=== PATIENT | female | born 1985 | race African-American/Black ===

== ENCOUNTER 2017-01-07 17:07 | Emergency (ER) | payer BC, OTHER ==
[2017-01-07 17:19] VITALS: BP 130/83; PULSE 70; TEMP 99.1; BMI 44.9
--- NOTE | 2017-01-07 18:21 | PDOC ---
History of Present Illness - General Chief Complaint: Edema Stated Complaint: SWOLLEN LEGS Time Seen by Provider: 01/07/17 18:20 History Source: Patient Exam Limitations: No Limitations - History of Present Illness Initial Comments: 01/07/17 18:21 CHIEF COMPLAINT: Leg swelling HISTORY OF PRESENT ILLNESS: This is a 31 year old female with a history of DVT/ PE in 2015 (no longer on AC), anemia requiring transfusions, morbid obesity, peripheral neuropathy, and chronic bilateral lower extremity lymphedema who presents with several weeks of worsening lower extremity edema and foot pain. She has run out of her morphine and has been taking more than her prescribed dose of gabapentin. V/s on arrival are all within normal limits. PCP is Dr. Sethi Patient has also seen Dr. Khan with vascular surgery REVIEW OF SYSTEMS: GENERAL/CONSTITUTIONAL: Fatigue. No fever or chills. No weakness. No weight change. HEAD, EYES, EARS, NOSE AND THROAT: No change in vision. No ear pain or discharge. No sore throat. CARDIOVASCULAR: No chest pain or palpitations. RESPIRATORY: Dyspnea on exertion. No cough or wheezing. GASTROINTESTINAL: Diarrhea x 3 days. GENITOURINARY: No dysuria, frequency, or change in urination. MUSCULOSKELETAL: No joint or muscle swelling or pain. No neck or back pain. SKIN: No rash or easy bruising. NEUROLOGIC: No headache, vertigo, loss of consciousness, or loss of sensation. PSYCHIATRIC: No depression or anxiety. ENDOCRINE: No increased thirst. No abnormal weight change. HEMATOLOGIC/LYMPHATIC: No anemia, easy bleeding, or history of blood clots. ALLERGIC/IMMUNOLOGIC: No hives or skin allergy. No latex allergy. PHYSICAL EXAM: GENERAL: The patient is awake, alert, and fully oriented, in no acute distress. HEAD: Normal with no signs of trauma. ENT: Pupils equal, round and reactive to light, extraocular movements intact, sclera anicteric, conjunctiva clear. Neck supple. LUNGS: Clear to auscultation bilaterally. Normal excursion. No respiratory distress or use of accessory muscles. CV: RRR, S1/S2, no MRG. Cap refill < 2 sec. ABDOMEN: Soft, obese, non-tender. No guarding or rebound tenderness. EXTREMITIES: Marked edema both lower extremities. Left posterior thigh tenderness/swelling. DP/PT pulses 1+ bilaterally. No skin breakdown. NEUROLOGICAL: Normal speech, normal gait. CN II-XII grossly intact. PSYCH: Normal mood, normal affect. SKIN: Warm, dry, normal turgor. Past History - Past Medical History Allergies/Adverse Reactions: Allergies Allergy/AdvReac Type Severity Reaction Status Date / Time No Known Allergies Allergy Verified 01/07/17 17:19 Home Medications: Ambulatory Orders Morphine (Avinza) [Avinza] 30 mg PO BID 03/09/16 Aspirin [ASA -] 325 mg PO DAILY 05/02/16 Folic Acid 1 tab PO DAILY 07/09/16 Gabapentin [Neurontin] 800 mg PO TID 07/09/16 Anemia: Yes (since childhood) Asthma: No Cancer: No Cardiac Disorders: No CVA: No COPD: No CHF: No Dementia: No Diabetes: No GI Disorders: No Disorders: No HTN: No Hypercholesterolemia: No Kidney Stones: No Liver Disease: No Seizures: No Thyroid Disease: No - Surgical History Abdominal Surgery: Yes (periumbilical hernia repair 01/09) - Immunization History Immunization Up to Date: Yes - Psycho/Social/Smoking Cessation Hx Anxiety: No Suicidal Ideation: No Smoking Status: No Smoking History: Never smoked Have you smoked in the past 12 months: No Number of Cigarettes Smoked Daily: 0 Information on smoking cessation initiated: No Hx Alcohol Use: No Drug/Substance Use Hx: No Substance Use Type: None Hx Substance Use Treatment: No *Physical Exam - Vital Signs Last Vital Signs Temp Pulse Resp BP Pulse Ox 99.1 F 70 18 130/83 100 01/07/17 17:15 01/07/17 17:15 01/07/17 17:15 01/07/17 17:15 01/07/17 17:15 ED Treatment Course - LABORATORY CBC & Chemistry Diagram: 01/07/17 18:31 01/07/17 18:31 Medical Decision Making - Medical Decision Making 01/07/17 18:55 A/P: 31 year old female with worsening of chronic lymphedema. Also complaining of fatigue which may be secondary to taking more than recommended amount of gabapentin. Complaining of some PIERSON, however SpO2 100% on RA, no tachycardia, tachypnea, or chest pain - low suspicion for PE. 1. EKG 2. Labs including CBC, CMP, BNP, UA 3. CXR to rule out pulmonary vascular congestion 4. Duplex LE u/s to r/o DVT 5. Morphine 4mg IVP x 1 for pain 6. Discuss[address] Dr. Sethi - requests ABG (patient refuses), and office followup for medication regimen adjustment. He will try to place the patient in the [facility]. Patient has followup appointment tomorrow and may be discharged if no concerning lab or radiology findings. Patient signed out to JAYE Flores to follow up on results, disposition.
[2017-01-07] MEDS ORDERED: morphine CARPU-JECT 4 MG/1 ML DISP.SYRIN IVPUSH ONE (18:41)
[2017-01-07] MEDS ORDERED: morphine CARPU-JECT 4 MG/1 ML DISP.SYRIN ONE (18:45)
[2017-01-07 18:57] LABS: BASOPHIL 0.4 % (0-2.0); EOSINOPHIL 0.8 % (0-4.5); MCH 27.5 pg (25.7-33.7); MEAN CELL VOLUME 83.5 fl (80-96); NEUTROPHILS 71.2 % (42.8-82.8); PLATELET COUNT 64 K/MM3 (134-434); WHITE BLOOD COUNT 3.5 K/mm3 (4.0-10.0)
[2017-01-07 19:16] LABS: ANION GAP 6 (8-16); BILIRUBIN,TOTAL 0.7 mg/dL (0.2-1.0); CALCIUM 8.8 mg/dL (8.5-10.1); CO2 28 mmol/L (21-32); CREATININE 0.6 mg/dL (0.55-1.02); GLUCOSE,RANDOM 87 mg/dL (74-106); SGOT/AST 43 U/L (15-37); SGPT/ALT 43 U/L (12-78); TOT PROT 7.7 g/dl (6.4-8.2)
[2017-01-07 19:18] LABS: ALK PHOS 86 U/L (45-117)
--- NOTE | 2017-01-07 21:11 | PDOC ---
*Physical Exam - Vital Signs Last Vital Signs Temp Pulse Resp BP Pulse Ox 99.1 F 70 18 130/83 100 01/07/17 17:15 01/07/17 17:15 01/07/17 17:15 01/07/17 17:15 01/07/17 17:15 ED Treatment Course - LABORATORY CBC & Chemistry Diagram: 01/07/17 18:31 01/07/17 18:31 - ADDITIONAL ORDERS Additional order review: Laboratory Results 01/07/17 01/07/17 18:41 18:31 Sodium 139 Potassium 4.4 Chloride 105 Carbon Dioxide 28 Anion Gap 6 L BUN 12 D Creatinine 0.6 Creat Clearance w eGFR > 60 Random Glucose 87 Calcium 8.8 Total Bilirubin 0.7 D AST 43 H D ALT 43 D Alkaline Phosphatase 86 B-Natriuretic Peptide 581.06 H Total Protein 7.7 Albumin 4.0 D Alcohol, Quantitative < 5.0 01/07/17 18:31 RBC 3.64 MCV 83.5 MCHC 33.0 RDW 16.0 H D MPV 11.0 D Neutrophils % 71.2 Lymphocytes % 22.0 D Monocytes % 5.6 Eosinophils % 0.8 Basophils % 0.4 - Medications Given in the ED: ED Medications Discontinued Medications Generic Name Dose Route Start Last Admin Trade Name Capoq PRN Reason Stop Dose Admin Morphine Sulfate 4 mg 01/07/17 18:41 01/07/17 18:46 Morphine Injection - IVPUSH 01/07/17 18:42 4 mg ONCE ONE Administration Medical Decision Making - Medical Decision Making 01/07/17 21:[address] daly. reviewed results. patient to be evaluated outpatient. U/s negative for DVT. chest negative. official read pending. *DC/Admit/Observation/Transfer Diagnosis at time of Disposition: Generalized weakness, Lymphedema of both lower extremities - Discharge Dispostion Disposition: HOME - Referrals Referrals: Michael Daly MD [Primary Care Provider] - Call tomorrow - Patient Instructions Printed Discharge Instructions: DI for Lymphadenopathy Additional Instructions: follow up with Dr. Page tomorrow. return to the ER if symptoms worsen.
--- NOTE | 2017-01-08 11:34 | EKG ---
Test Reason : Blood Pressure : / mmHG Vent. Rate : 070 BPM Atrial Rate : 070 BPM P-R Int : 208 ms QRS Dur : 090 ms QT Int : 404 ms P-R-T Axes : 031 -18 060 degrees QTc Int : 436 ms SINUS RHYTHM WITH FIRST AV BLOCK POOR R WAVE PROGRESSION IN V1-V3 NONSPECIFIC T WVAE ABNORMALITIES ABNORMAL ECG WHEN COMPARED WITH ECG OF 02-MAY-2016 11:35, NO MAJOR CHANGE SEEN REPEAT EKG IF CLINICALLY INDICATED Confirmed by ANGELA TRAYLOR MD ([id number]) on 01/08/2017 11:34:29 AM Referred By: Confirmed By:ANGELA TRAYLOR MD
== END 2017-01-07 22:00 | disposition home or self-care (01) ==
LOC: JER 17:07
PROC: 3E033NZ Introduction of Analgesics, Hypnotics, Sedatives into Peripheral Vein, Percutaneous Approach (ICD-10-PCS; principal; 2017-01-07)
DX: R53.83 Other fatigue (principal); R53.1 Weakness; I89.0 Lymphedema, not elsewhere classified; D64.9 Anemia, unspecified; E66.01 Morbid (severe) obesity due to excess calories; Z68.41 Body mass index [BMI] 40.0-44.9, adult; Z86.718 Personal history of other venous thrombosis and embolism; Z86.711 Personal history of pulmonary embolism
CPT/HCPCS: 36415; 71020-TC; 80053; 80307; 83880; 85025; 93005; 93010; 93970-TC; 96374; 99284-25

== ENCOUNTER 2017-02-10 11:23 | Emergency (ER) | payer OTHER ==
[2017-02-10 11:55] VITALS: BP 148/88; PULSE 78; TEMP 98.6; BMI 46.1
--- NOTE | 2017-02-10 13:00 | PDOC ---
History of Present Illness - General Chief Complaint: Edema Stated Complaint: SWOLLEN LEGS Time Seen by Provider: 02/10/17 12:15 - History of Present Illness Initial Comments: 02/10/17 13:20 The patient is a 31 year old female with a history of DVT, PE, peripheral neuropathy, lymphedema who presents for evaluation of worsening lower extremity swelling and foot pain. The patient reports a long history of lymphedema and neuropathy for over 1 year. She states that over the past week, she has noted worsening burning sensation at the bottom of her feet and right heel pain. She notes that she was taking diclofenac for her heel pain which was helping, however, she recently became unemployed and has not been able to afford it. She notes that she has been taking gabapentin as well for her neuropathy, but the dose has been decreased over the past several months. She denies SOB, chest pain, abdominal pain, or changes with urination or bowel movements. Past History - Past Medical History Allergies/Adverse Reactions: Allergies Allergy/AdvReac Type Severity Reaction Status Date / Time No Known Allergies Allergy Verified 02/10/17 11:55 Home Medications: Ambulatory Orders Folic Acid 1 tab PO DAILY 07/09/16 Gabapentin [Neurontin] 800 mg PO TID 07/09/16 Diclofenac Sodium 75 mg PO DAILY #30 tablet. 02/10/17 Anemia: Yes (since childhood) Asthma: No Cancer: No Cardiac Disorders: No CVA: No COPD: No CHF: No Dementia: No Diabetes: No GI Disorders: No Disorders: No HTN: No (lymphaedema) Hypercholesterolemia: No Kidney Stones: No Liver Disease: No Seizures: No Thyroid Disease: No Other medical history: neuropathy - Surgical History Abdominal Surgery: Yes (periumbilical hernia repair 01/09) - Immunization History Immunization Up to Date: Yes - Suicide/Smoking/Psychosocial Hx Smoking Status: No Smoking History: Never smoked Have you smoked in the past 12 months: No Number of Cigarettes Smoked Daily: 0 Information on smoking cessation initiated: No Hx Alcohol Use: No Drug/Substance Use Hx: No Substance Use Type: None Hx Substance Use Treatment: No Review of Systems - Review of Systems Comments:: 02/10/17 13:26 Constitutional: No fevers, chills, fatigue, malaise HEENT: No Rhinorrhea, nasal congestion, Cardiovascular: No chest pain, syncope, palpitations, lightheadedness Respiratory: No Cough, SOB, Hemoptysis, Gastrointestinal: No Abdominal pain, Nausea, Vomiting, Constipation, Diarrhea, Melena Genitourinary: No Dysuria, Frequency, Urgency, Hesitancy, Hematuria, Flank pain Musculoskeletal: Right heel pain. Lower extremity swelling. No Myalgia, arthralgia Skin: No rashes, bruising, pallor Neurologic: No Headache, Dizziness, Numbness, Weakness, or Tingling *Physical Exam - Vital Signs Last Vital Signs Temp Pulse Resp BP Pulse Ox 98.6 F 78 18 148/88 100 02/10/17 11:25 02/10/17 11:25 02/10/17 11:25 02/10/17 11:25 02/10/17 11:25 - Physical Exam Comments: 02/10/17 13:27 General Appearance: Nourished. No Apparent Distress HEENT: EOMI, BOUCHRA. No Pharyngeal Erythema, Tonsillar Exudate, Tonsillar Erythema Respiratory/Chest: Lungs Clear, Normal Breath Sounds. No Crackles, Rales, Rhonchi, Wheezing Cardiovascular: Regular Rhythm, Regular Rate. No Murmur, Gallops, Rubs Gastrointestinal/Abdominal: Normal Bowel Sounds, Soft. No Guarding, Rebound, Tenderness Musculoskeletal: No CVA Tenderness Extremity: Significant 3+ pitting edema in the lower extremities bilaterally. Tenderness to palpation of the right heel. Normal Capillary Refill Integumentary: Normal Color, Dry, Warm Neurologic: Fully Oriented, Alert, Normal Mood/Affect, Normal Response, Medical Decision Making - Medical Decision Making 02/10/17 13:28 The patient is a 31 year old female with a history of DVT, PE, peripheral neuropathy, lymphedema who presents for evaluation of worsening lower extremity swelling and foot pain. Differential includes but is not limited to: DVT, Worsening Lymphedema, fracture, tendonitis. Given the patient's history of DVT and significant lower extremity edema, we will obtain US to evaluate for DVT. We will also obtain a plain film of her right heel given her pain with palpation to evaluate for fracture. We will treat her pain with diclofenac and gabapentin here in the ED and continue to monitor and reassess. 02/10/17 17:07 DVT US was negative for DVT as read by our radiologist. Foot plain film demonstrates an osteophyte but no acute fracture or processes as preliminarily read by ED physician pending official radiologist read. We are comfortable discharging the patient home at this time with PCP and podietry follow up. We will send Diclofinec to the [facility] pharmacy to assist in pain management at home. *DC/Admit/Observation/Transfer Diagnosis at time of Disposition: Lymphedema - Discharge Dispostion Disposition: HOME Condition at time of disposition: Improved Admit: No - Prescriptions Prescriptions: Diclofenac Sodium 75 mg PO DAILY #30 tablet.dr - Referrals Referrals: Michael Sethi MD [Primary Care Provider] - Digna Gongora MD [Staff Physician] - - Patient Instructions Additional Instructions: Please return to the ER if you experience concerning or worsening symptoms including chest pain or SOB. We have given you a [facility] Please follow up with a podietrist and your Primary care provider for further management of your symptoms.
[2017-02-10] MEDS ORDERED: GABAPENTIN 300 MG CAPSULE (FP) PO ONE (13:01)
[2017-02-10] MEDS: DICLOFENAC SODIUM 25 MG TABLET.DR PO ONE ×2 (13:13→13:25)
[2017-02-10] MEDS ORDERED: GABAPENTIN 100 MG CAPSULE (FP) ONE (13:15)
--- NOTE | 2017-02-10 14:26 | PDOC ---
Attending Attestation - Resident Resident Name: BeckyBrian - ED Attending Attestation I have performed the following: I have examined & evaluated the patient, The case was reviewed & discussed with the resident, I agree w/resident's findings & plan, Exceptions are as noted - HPI HPI: 02/10/17 13:50 31 year old F c/ hx of DVT, PE, peripheral neuropathy, lymphedema p/w R heel pain. The patient has had a longstanding history of bilateral lymphedema. The patient has noted in the last week of having worsening R heel pain. Denies trauma, but has been ambulatory. Pt has been taking her gabapentin but because of the worsening pain, came into the ED. - Physicial Exam PE: 02/10/17 13:53 LOWER EXTREMITIES: Palpable DP pulses. + lymphedema bilaterally. No erythema, drainage. Crow sign negative. Pt with point tenderness at the R heel - Medical Decision Making 02/10/17 14:26 Vital Signs Temp Pulse Resp BP Pulse Ox 98.6 F 78 18 148/88 99 02/10/17 11:25 02/10/17 11:25 02/10/17 11:25 02/10/17 11:25 02/10/17 13:53 31 year old F p/w R heel pain. I suspect that this is likely musculoskeletal. Pt reported that she responded well to diclofenac in the past Will obtain a foot radiograph and duplex of lower extremities. If workup is negative, pt instructed to elevate legs, ICE, NSAIDs and follow up with PMD Heart Score/ECG Review #1 ECG reviewed & interpreted by me at: 11:40 02/10/17 14:27 NSR 76, no std/rocio, normal axis ,normal intervals, QTC 429 msec
--- NOTE | 2017-02-12 07:16 | EKG ---
Test Reason : Blood Pressure : / mmHG Vent. Rate : 076 BPM Atrial Rate : 076 BPM P-R Int : 178 ms QRS Dur : 096 ms QT Int : 382 ms P-R-T Axes : 005 -15 037 degrees QTc Int : 429 ms NORMAL SINUS RHYTHM NORMAL ECG WHEN COMPARED WITH ECG OF 07-JAN-2017 19:53, NO SIGNIFICANT CHANGE WAS FOUND Confirmed by SABINE MCCOLLUM MD ([id number]) on 02/12/2017 7:16:36 AM Referred By: Confirmed By:SABINE MCCOLLUM MD
== END 2017-02-10 18:03 | disposition home or self-care (01) ==
LOC: JER 11:23
DX: I89.0 Lymphedema, not elsewhere classified (principal); G62.9 Polyneuropathy, unspecified; Z86.718 Personal history of other venous thrombosis and embolism; Z86.711 Personal history of pulmonary embolism
CPT/HCPCS: 73630-TC-RT; 84703; 93005; 93010; 93970-TC; 99282-25

== ENCOUNTER 2017-03-31 21:03 | Emergency (ER) | payer OTHER ==
[2017-03-31 21:17] VITALS: BP 141/80; PULSE 70; TEMP 98.9; BMI 48.1
--- NOTE | 2017-03-31 21:24 | PDOC ---
History of Present Illness - History of Present Illness Initial Comments: 03/31/17 21:37 Ms. Hartley is a 31 yo female w/ pmh of DVT, PE (2015, not currently anticoagulated), peripheral neuropathy, and lymphedema who presents c/o a 1 day history of shortness of breath with palpitations. She says she is normally able to ambulate w/out problems but that she woke up today shortness of breath at rest and on exertion and felt like her heart was beating hard. The patient denies chest pain, headache and dizziness. Denies fever, chills, nausea, vomit, diarrhea and constipation. Denies dysuria, frequency, urgency and hematuria. Allergies: NKDA <Murali Boothe - Last Filed: 03/31/17 21:47> <Faith Scanlon - Last Filed: 04/01/17 01:41> - General Chief Complaint: Shortness of Breath Stated Complaint: SOB Time Seen by Provider: 03/31/17 21:24 Past History - Past Medical History Anemia: Yes (since childhood) Asthma: No Cancer: No Cardiac Disorders: No CVA: No COPD: No CHF: No Dementia: No Diabetes: No GI Disorders: No Disorders: No HTN: No (lymphaedema) Hypercholesterolemia: No Kidney Stones: No Liver Disease: No Seizures: No Thyroid Disease: No - Surgical History Abdominal Surgery: Yes (periumbilical hernia repair 01/09) - Immunization History Immunization Up to Date: Yes - Suicide/Smoking/Psychosocial Hx Smoking Status: No Smoking History: Never smoked Have you smoked in the past 12 months: No Number of Cigarettes Smoked Daily: 0 Information on smoking cessation initiated: No Hx Alcohol Use: No Drug/Substance Use Hx: No Substance Use Type: None Hx Substance Use Treatment: No <Murali Boothe - Last Filed: 03/31/17 21:47> <Faith Scanlon - Last Filed: 04/01/17 01:41> - Past Medical History Allergies/Adverse Reactions: Allergies Allergy/AdvReac Type Severity Reaction Status Date / Time No Known Allergies Allergy Verified 03/31/17 21:15 Home Medications: Ambulatory Orders Folic Acid 1 tab PO DAILY 07/09/16 Gabapentin [Neurontin] 800 mg PO TID 07/09/16 Diclofenac Sodium 75 mg PO DAILY #30 tablet. 02/10/17 Gabapentin [Neurontin] 800 mg PO TID #30 tablet 02/10/17 Lorazepam [Ativan] 0.5 mg PO TID #15 tablet MDD 3 03/31/17 Review of Systems - Review of Systems Comments:: 03/31/17 21:53 GENERAL/CONSTITUTIONAL: No fever or chills. No weakness. HEAD, EYES, EARS, NOSE AND THROAT: No change in vision. No ear pain or discharge. No sore throat. CARDIOVASCULAR: Shortness of breath as described with palpitations RESPIRATORY: No cough, wheezing, or hemoptysis. GASTROINTESTINAL: No nausea, vomiting, diarrhea or constipation. GENITOURINARY: No dysuria, frequency, or change in urination. MUSCULOSKELETAL: No joint or muscle swelling or pain. No neck or back pain. SKIN: No rash NEUROLOGIC: No headache, vertigo, loss of consciousness, or change in strength/ sensation. ENDOCRINE: No increased thirst. No abnormal weight change HEMATOLOGIC/LYMPHATIC: No anemia, easy bleeding, or history of blood clots. ALLERGIC/IMMUNOLOGIC: No hives or skin allergy. <Murali Boothe - Last Filed: 03/31/17 21:47> *Physical Exam - Vital Signs Last Vital Signs Temp Pulse Resp BP Pulse Ox 98.9 F 70 16 141/80 100 03/31/17 21:16 03/31/17 21:16 03/31/17 21:16 03/31/17 21:16 03/31/17 21:16 - Physical Exam Comments: 03/31/17 21:53 GENERAL: Awake, alert, and fully oriented, in no acute distress HEAD: No signs of trauma, normocephalic, atraumatic EYES: PERRLA, EOMI, sclera anicteric, conjunctiva clear ENT: Auricles normal inspection, hearing grossly normal, nares patent, oropharynx clear without exudates. Moist mucosa NECK: Normal ROM, supple, no lymphadenopathy, JVD, or masses LUNGS: No distress, speaks full sentences, clear to auscultation bilaterally HEART: Regular rate and rhythm, normal S1 and S2, no murmurs, rubs or gallops, peripheral pulses normal and equal bilaterally. ABDOMEN: Soft, nontender, normoactive bowel sounds. No guarding, no rebound. No masses EXTREMITIES: Normal inspection, Normal range of motion, no edema. No clubbing or cyanosis. NEUROLOGICAL: Cranial nerves II through XII grossly intact. Normal speech, normal gait, no focal sensorimotor deficits SKIN: Warm, Dry, normal turgor, no rashes or lesions noted. <Murali Boothe - Last Filed: 03/31/17 21:47> - Vital Signs Last Vital Signs Temp Pulse Resp BP Pulse Ox 98.9 F 70 16 141/80 100 03/31/17 21:16 03/31/17 21:16 03/31/17 21:16 03/31/17 21:16 03/31/17 21:16 <Faith Scanlon - Last Filed: 04/01/17 01:41> ED Treatment Course - LABORATORY CBC & Chemistry Diagram: 03/31/17 22:02 03/31/17 22:02 - ADDITIONAL ORDERS Additional order review: Laboratory Results 03/31/17 03/31/17 22:02 22:02 Sodium 138 Potassium 3.7 Chloride 103 Carbon Dioxide 33 H Anion Gap 2 L BUN 12 Creatinine 0.6 Creat Clearance w eGFR > 60 Random Glucose 86 Calcium 8.4 L Total Bilirubin 0.5 D AST 23 D ALT 26 D Alkaline Phosphatase 80 Total Protein 7.6 Albumin 3.6 Serum , Qual Negative 03/31/17 22:02 RBC 4.11 MCV 83.4 MCHC 33.1 RDW 15.5 MPV 9.9 Neutrophils % 62.4 Lymphocytes % 29.5 D Monocytes % 6.7 Eosinophils % 0.7 Basophils % 0.7 - RADIOLOGY Radiology Studies Ordered: Category Date Time Status DUPLEX VASCUL US-2LEGS [US] Stat Ultrasound 04/01/17 23:11 Taken - Medications Given in the ED: ED Medications Discontinued Medications Generic Name Dose Route Start Last Admin Trade Name Freq PRN Reason Stop Dose Admin Lorazepam 1 mg 03/31/17 22:00 03/31/17 22:18 Ativan - PO 03/31/17 22:01 1 mg ONCE ONE Administration <Faith Scanlon - Last Filed: 04/01/17 01:41> *DC/Admit/Observation/Transfer <Murali Boothe - Last Filed: 03/31/17 21:47> - Discharge Dispostion Admit: No <Faith Scanlon - Last Filed: 12/04/17 01:41> Diagnosis at time of Disposition: Obesity, Sedentary lifestyle - Discharge Dispostion Disposition: HOME Condition at time of disposition: Stable - Prescriptions Prescriptions: Lorazepam [Ativan] 0.5 mg PO TID #15 tablet MDD 3 - Patient Instructions Printed Discharge Instructions: DI for Obesity -- Adult, Weight Loss Aids ( Alternative Therapy), Get a Handle on Stress with Physical Fitness
--- NOTE | 2017-03-31 21:42 | PDOC ---
Attending Attestation - Resident Resident Name: Murali Boothe - ED Attending Attestation I have performed the following: I have examined & evaluated the patient, The case was reviewed & discussed with the resident, I agree w/resident's findings & plan - HPI HPI: 03/31/17 21:42 Pt returns with SOB; she had a PE workup in Apr. 03/31/17 23:12 Pt has a hx of DVT in the past, but she has chronic leg swelling and states that her legs dont look any different to her. She has no SOB in the ER, and her vital signs are normal. - Physicial Exam PE: 04/01/17 01:36 Pt is obese, otherwise exam is normal; chronic leg edema - Medical Decision Making 04/01/17 01:36 Referring Physician: STEPHANIE NGUYEN Patient Name: WILBER RONDON THIS IS A PRELIMINARY REPORT FROM [facility] DATE OF SERVICE: 2017-04-01 00:33:35 IMAGES: 40 EXAM: Venous duplex bilateral, lower extremities HISTORY: Rule out DVT COMPARISON: None. FINDINGS: There is no DVT in the right or left lower extremity. IMPRESSION: No DVT. THIS DOCUMENT HAS BEEN ELECTRONICALLY SIGNED 04/01/17 06:32 Pt will be discharged and she will be asked to follow with her PMD., SHe understands the need to follow with stock lifter and to lose weight. She will be given meds for anxiety. She can follow with her PMD or with psych for further treatement.
[2017-03-31] MEDS ORDERED: LORazepam 1 MG TABLET PO ONE (22:00)
[2017-03-31] MEDS ORDERED: LORazepam 0.5 MG TABLET ONE (22:12)
[2017-03-31 22:20] LABS: BASOPHIL 0.7 % (0-2.0); EOSINOPHIL 0.7 % (0-4.5); MCH 27.6 pg (25.7-33.7); MCHC 33.1 g/dl (32.0-36.0); MEAN CELL VOLUME 83.4 fl (80-96); MEAN PLT VOLUME 9.9 fl (7.5-11.1); NEUTROPHILS 62.4 % (42.8-82.8); PLATELET COUNT 84 K/MM3 (134-434); RDW 15.5 % (11.6-15.6)
[2017-03-31 22:46] LABS: ALBUMIN 3.6 g/dl (3.4-5.0); ANION GAP 2 (8-16); BILIRUBIN,TOTAL 0.5 mg/dL (0.2-1.0); CALCIUM 8.4 mg/dL (8.5-10.1); CO2 33 mmol/L (21-32); CREATININE 0.6 mg/dL (0.55-1.02); GLUCOSE,RANDOM 86 mg/dL (74-106); SGOT/AST 23 U/L (15-37); SGPT/ALT 26 U/L (12-78); TOT PROT 7.6 g/dl (6.4-8.2)
[2017-03-31 22:47] LABS: ALK PHOS 80 U/L (45-117)
--- NOTE | 2017-04-01 12:54 | EKG ---
Test Reason : Blood Pressure : / mmHG Vent. Rate : 071 BPM Atrial Rate : 071 BPM P-R Int : 206 ms QRS Dur : 088 ms QT Int : 402 ms P-R-T Axes : 022 -10 026 degrees QTc Int : 436 ms NORMAL SINUS RHYTHM NORMAL ECG WHEN COMPARED WITH ECG OF 10-FEB-2017 11:40, NO SIGNIFICANT CHANGE WAS FOUND Confirmed by SABINE MCCOLLUM MD ([id number]) on 04/01/2017 12:53:26 PM Referred By: Confirmed By:SABINE MCCOLLUM MD
== END 2017-04-01 02:04 | disposition home or self-care (01) ==
LOC: JER 21:03
DX: R00.2 Palpitations (principal); R06.02 Shortness of breath; Z72.89 Other problems related to lifestyle; E66.9 Obesity, unspecified; Z68.42 Body mass index [BMI] 45.0-49.9, adult; I89.0 Lymphedema, not elsewhere classified; G62.9 Polyneuropathy, unspecified
CPT/HCPCS: 36415; 80053; 84703; 85025; 93005; 93010; 93970-TC; 99284-25

== ENCOUNTER 2017-06-27 11:32 | Emergency (ER) | payer OTHER ==
[2017-06-27 11:50] VITALS: BP 145/92; PULSE 77; TEMP 98.1; BMI 48.1
--- NOTE | 2017-06-27 12:12 | PDOC ---
History of Present Illness - General Chief Complaint: Urinary Problem Stated Complaint: BACK PAIN Time Seen by Provider: 06/27/17 12:01 History Source: Patient Exam Limitations: No Limitations - History of Present Illness Initial Comments: 06/27/17 12:10 Patient is a 31-year-old female, morbidly obese history of bilateral lower extremity peripheral neuropathy and lymphedema presents with 2 day history of dysuria and frequency. No hematuria. Lower back pain, radiating down right leg . Patient has history of same. Denies any fever, no new sexual activity. Allergies: No known allergies Medications: [Percocet when necessary, Ambien] Family History: Non-contributory Social History: Denies smoking, alcohol use, or IVDU Vital signs on arrival are [notable for pulse of 77] Review of Systems GENERAL/CONSTITUTIONAL: [No fever or chills. No weakness. No weight change.] HEAD, EYES, EARS, NOSE AND THROAT: [No change in vision. No ear pain or discharge. No sore throat. ] CARDIOVASCULAR: [No chest pain or shortness of breath.] RESPIRATORY: [No cough, wheezing, or hemoptysis.] GASTROINTESTINAL: [No nausea, vomiting, diarrhea or constipation. No rectal bleeding.] GENITOURINARY: Dysuria and frequency no hematuria MUSCULOSKELETAL: [No joint or muscle swelling or pain. No neck or back pain.] SKIN AND BREASTS: [No rash or easy bruising.] NEUROLOGIC: [No headache, vertigo, loss of consciousness, or loss of sensation.] PSYCHIATRIC: [No depression or anxiety.] ENDOCRINE: [No increased thirst. No abnormal weight change.] HEMATOLOGIC/LYMPHATIC: [No anemia, easy bleeding, or history of blood clots.] ALLERGIC/IMMUNOLOGIC: [No hives or skin allergy. No latex allergy.] Physical Exam: GENERAL: [The patient is awake, alert, and fully oriented, in no acute distress. ] EYES: [Pupils equal, round and reactive to light, extraocular movements intact, sclera anicteric, conjunctiva clear.] ENT: [Ears normal, nares patent, oropharynx clear without exudates. Moist mucous membranes. No uvula deviation] NECK: [Normal range of motion, supple without lymphadenopathy, JVD, or masses.] LUNGS: [Breath sounds equal, clear to auscultation bilaterally. No wheezes, and no crackles.] HEART: [Regular rate and rhythm, normal S1 and S2 without murmur, rub or gallop. ] ABDOMEN: [Soft, nontender, normoactive bowel sounds. No guarding, no rebound. No masses. No bruising or abrasions] MUSCULOSKELETAL: [Normal range of motion, no edema. No clubbing or cyanosis. No cords, erythema, or tenderness. No CVA Tenderness with fist palpation.] NEUROLOGICAL: [Cranial nerves II through XII grossly intact. Normal speech, normal gait.] SKIN: [Warm, Dry, normal turgor, no rashes or lesions noted.] 06/27/17 12:11 Past History - Past Medical History Allergies/Adverse Reactions: Allergies Allergy/AdvReac Type Severity Reaction Status Date / Time No Known Allergies Allergy Verified 06/27/17 11:45 Home Medications: Ambulatory Orders Cephalexin Monohydrate [Keflex -] 500 mg PO BID #20 capsule 06/27/17 Anemia: Yes (since childhood) Asthma: No Cancer: No Cardiac Disorders: No CVA: No COPD: No CHF: No Dementia: No Diabetes: No GI Disorders: No Disorders: No HTN: No (lymphaedema) Hypercholesterolemia: No Kidney Stones: No Liver Disease: No Seizures: No Thyroid Disease: No - Surgical History Abdominal Surgery: Yes (periumbilical hernia repair 01/09) - Immunization History Immunization Up to Date: Yes - Suicide/Smoking/Psychosocial Hx Smoking Status: No Smoking History: Current some day smoker Have you smoked in the past 12 months: No Number of Cigarettes Smoked Daily: 2 Information on smoking cessation initiated: No Hx Alcohol Use: No Drug/Substance Use Hx: No Substance Use Type: None Hx Substance Use Treatment: No *Physical Exam - Vital Signs Last Vital Signs Temp Pulse Resp BP Pulse Ox 98.1 F 77 20 145/92 99 06/27/17 11:35 06/27/17 11:35 06/27/17 11:35 06/27/17 11:35 06/27/17 11:35 Medical Decision Making - Medical Decision Making 06/27/17 12:11 A/P: Patient with dysuria and frequency lower back pain radiated down right leg however back pain is chronic. Will send urinalysis and urine culture 06/27/17 13:34 Laboratory Results - last 24 hr 06/27/17 12:10 Urine Color Dkyellow Urine Appearance Slcloudy Urine pH 5.0 Ur Specific [place] 1.033 Urine Protein 2+ H Urine Glucose (UA) Negative Urine Ketones Negative Urine Blood 1+ H Urine Nitrite Negative Urine Bilirubin 2.0 Urine Urobilinogen 2.0 H Ur Leukocyte Esterase 3+ H Urine WBC (Auto) 80 Urine RBC (Auto) 6 Ur Epithelial Cells Few Urine Bacteria Rare Urine Mucus Rare Urine HCG, Qual Negative Patient with urinary tract infection will DC on Keflex, follow-up with urology. Domenic for pain.I discussed the physical exam findings, ancillary test results and final diagnoses with the patient. I answered all of the patient's questions. The patient was satisfied with the care received and felt comfortable with the discharge plan and treatment plan. The patient will call to arrange follow-up and will return to the Emergency Department with any new, persistent or worsening symptoms. *DC/Admit/Observation/Transfer Diagnosis at time of Disposition: Urinary tract infection Qualifiers: Urinary tract infection type: site unspecified Hematuria presence: without hematuria Qualified Code(s): N39.0 - Urinary tract infection, site not specified - Discharge Dispostion Disposition: HOME Condition at time of disposition: Stable Admit: No - Prescriptions Prescriptions: Cephalexin Monohydrate [Keflex -] 500 mg PO BID #20 capsule - Referrals Referrals: Mukund Cazares MD [Staff Physician] - - Patient Instructions Additional Instructions: If any increased pain, fever, blood in urine, or any other concerns return to ER - Post Discharge Activity Forms/Work/School Notes: Back to Work
[2017-06-27 12:21] LABS: URINE APPEARANCE SLCLOUDY; URINE BLOOD 1+ (NEGATIVE); URINE COLOR DKYELLOW; URINE GLUCOSE (UA) NEGATIVE (NEGATIVE); URINE KETONE NEGATIVE (NEGATIVE); URINE NITRITE NEGATIVE (NEGATIVE)
[2017-06-27 12:23] LABS: URINE LEUK ESTERASE 3+ (NEGATIVE); URINE PROTEIN 2+ (NEGATIVE)
[2017-06-27 12:25] LABS: EPI CELLS FEW /HPF (FEW); URINE BACTERIA RARE /hpf (NONE SEEN); URINE MUCUS RARE
[2017-06-27 12:26] LABS: HCG,QUALITATIVE URINE NEGATIVE
--- NOTE | 2017-06-30 07:15 | PDOC ---
Patient Follow-up (Call Back) - Post ED Follow - Up Condition at time of discharge: Stable Disposition at time of original discharge: HOME Reason for Call Back: Abnwl. Microbiology (Pt. with UTI on keflex. Appropriate treatment per sensitivity)
== END 2017-06-27 13:03 | disposition home or self-care (01) ==
LOC: JERFT 11:32
DX: N39.0 Urinary tract infection, site not specified (principal); I89.0 Lymphedema, not elsewhere classified; G62.89 Other specified polyneuropathies; E66.01 Morbid (severe) obesity due to excess calories; Z68.42 Body mass index [BMI] 45.0-49.9, adult
CPT/HCPCS: 81003; 81015; 84703; 87086; 87186; 99281-25

== ENCOUNTER 2017-07-07 06:20 | Emergency (ER) | payer OTHER ==
[2017-07-07 06:48] VITALS: BP 160/86; PULSE 90; TEMP 97.6; BMI 50.1
[2017-07-07] MEDS ORDERED: GABAPENTIN 400 MG CAPSULE (FP) PO ONE (07:19)
[2017-07-07] MEDS ORDERED: GABAPENTIN 100 MG CAPSULE (FP) ONE (07:22)
--- NOTE | 2017-07-07 07:26 | PDOC ---
History of Present Illness - General Chief Complaint: Pain, Acute Stated Complaint: LEG PAIN Time Seen by Provider: 07/07/17 07:02 History Source: Patient Exam Limitations: No Limitations - History of Present Illness Initial Comments: 07/07/17 07:21 Patient is a 31F with history of DVT and PE in 2012 here today complaining of bilateral foot swelling and pain. She states that she feels off-balance with pain in each foot. She was worked up last night for possible DVT. Labs showed no significant abnormalities. Bilateral DVT ultrasound studies were both normal. Patient was walking around the ED and said her pain had improved. She was sent home with instructions to follow up with Dr Sethi. She reports coming back today because her pain is worse. Denies chest pain and shortness of breath. Past History - Past Medical History Allergies/Adverse Reactions: Allergies Allergy/AdvReac Type Severity Reaction Status Date / Time No Known Allergies Allergy Verified 07/07/17 06:48 Home Medications: Ambulatory Orders Clonazepam [Klonopin] 1 mg PO BID 07/06/17 Gabapentin [Neurontin] 800 mg PO QID 07/06/17 Ibuprofen [Motrin -] 800 mg PO TID PRN 07/06/17 Oxycodone HCl/Acetaminophen [Percocet 5-325 mg Tablet] 1 tab PO Q8H PRN Anemia: Yes (since childhood) Asthma: No Cancer: No Cardiac Disorders: No CVA: No COPD: No CHF: No Dementia: No Diabetes: No GI Disorders: No Disorders: No HTN: No (lymphaedema) Hypercholesterolemia: No Kidney Stones: No Liver Disease: No Seizures: No Thyroid Disease: No - Surgical History Abdominal Surgery: Yes (periumbilical hernia repair 01/09) - Immunization History Immunization Up to Date: Yes - Suicide/Smoking/Psychosocial Hx Smoking Status: No Smoking History: Never smoked Have you smoked in the past 12 months: No Number of Cigarettes Smoked Daily: 2 Information on smoking cessation initiated: No Hx Alcohol Use: No Drug/Substance Use Hx: No Substance Use Type: None Hx Substance Use Treatment: No Review of Systems - Review of Systems Comments:: 07/07/17 07:25 GENERAL/CONSTITUTIONAL: No fever or chills. No weakness. HEAD, EYES, EARS, NOSE AND THROAT: No change in vision. No sore throat. CARDIOVASCULAR: No chest pain or shortness of breath RESPIRATORY: No cough, wheezing, or hemoptysis. GASTROINTESTINAL: No nausea, vomiting, diarrhea or constipation. GENITOURINARY: No dysuria, frequency, or change in urination. MUSCULOSKELETAL: Positive for bilateral foot pain. No neck or back pain. SKIN: No rash NEUROLOGIC: No headache, vertigo, loss of consciousness, or change in strength/ sensation. ENDOCRINE: No increased thirst. No abnormal weight change HEMATOLOGIC/LYMPHATIC: No anemia, easy bleeding. Positive for history of blood clots. ALLERGIC/IMMUNOLOGIC: No hives or skin allergy. *Physical Exam - Vital Signs Last Vital Signs Temp Pulse Resp BP Pulse Ox 97.6 F 90 18 160/86 99 07/07/17 06:46 07/07/17 06:46 07/07/17 06:46 07/07/17 06:46 07/07/17 06:46 - Physical Exam Comments: 07/07/17 07:26 GENERAL: Awake, alert, and fully oriented, in no acute distress, morbidly obese FEET: Nontender, no signs of trauma, no signs of skin breakdown, non pitting edema with large amounts of adipose tissue HEAD: No signs of trauma, normocephalic, atraumatic EYES: PERRLA, EOMI, sclera anicteric, conjunctiva clear ENT: Auricles normal inspection, hearing grossly normal, nares patent, oropharynx clear without exudates. Moist mucosa LUNGS: No distress, speaks full sentences, clear to auscultation bilaterally HEART: Regular rate and rhythm, normal S1 and S2, no murmurs, rubs or gallops, peripheral pulses normal and equal bilaterally. ABDOMEN: Soft, nontender, normoactive bowel sounds. No guarding, no rebound. No masses NEUROLOGICAL: Cranial nerves II through XII grossly intact. Normal speech, normal gait, no focal sensorimotor deficits SKIN: Warm, Dry, normal turgor, no rashes or lesions noted. Medical Decision Making - Medical Decision Making 07/07/17 07:29 31F with history of DVT and PE here today with foot pain and lymphedema. Vital signs stable and normal. Workup already done and negative. Patient returning due to increased burning sensation in feet. Believe patient likely has diabetic neuropathy and needs PCP follow up. Discussed outpatient management with patient. Patient has PCP available with Dr Sethi. Patient takes gabapentin at home, does not require prescription. Will give gabapentin, walk test, and likely discharge with PCP follow up. *DC/Admit/Observation/Transfer Diagnosis at time of Disposition: Neuropathy - Discharge Dispostion Disposition: HOME Condition at time of disposition: Good Admit: No - Referrals Referrals: Michael eSthi MD [Primary Care Provider] - - Patient Instructions Printed Discharge Instructions: DI for Diabetic Neuropathy Additional Instructions: You were seen today in the ED for foot pain. The pain is due to neuropathy in your feet, possibly from diabetes. Please call Dr Sethi tomorrow to set up an appointment for further follow up. Please return if your symptoms worsen and your medication does not control your pain. Please return if you have any new or concerning symptoms. - Post Discharge Activity
--- NOTE | 2017-07-07 07:34 | PDOC ---
Attending Attestation - HPI HPI: 07/07/17 07:51 Patient is a 31F, with PMHx of Lymphedema, DVT, PE (2012), who presents with b/ l foot pain and swelling. Patient was here last night for same complaint. Her labs from last night were negative for DVT but she is back here today because her pain has worsened. She describes her pain as a burning pain, does not radiate. She denies chest pain or shortness of breath. - Physicial Exam PE: 07/07/17 08:23 Vitals: Triage Vital signs reviewed General Appearance: no acute distress, well nourished well developed, Head: Atraumatic, normocephalic Abdomen: Soft, nondistended, normal bowel sounds, nontender to palpation Extremities: B/l leg edema. Full range of motion to all extremities. Skin: Warm and dry, no rashes or lesions, no petechiae <Armida Azevedo - Last Filed: 07/07/17 08:23> - Resident Resident Name: Mark Woodard - ED Attending Attestation I have performed the following: I have examined & evaluated the patient, The case was reviewed & discussed with the resident, I agree w/resident's findings & plan, Exceptions are as noted - Medical Decision Making 07/07/17 14:07 Well-appearing no apparent distress presents to the ED with bilateral foot pain has negative U/S and normal labs History and examination consistent with neuropathic pain Patient will follow-up with her primary care provider tomorrow Findings, the need for follow-up, strict return instructions discussed with patient. <Saúl Mars - Last Filed: 07/07/17 14:07>
== END 2017-07-07 08:14 | disposition home or self-care (01) ==
LOC: JER 06:20
DX: G62.89 Other specified polyneuropathies (principal); Z86.718 Personal history of other venous thrombosis and embolism; Z86.711 Personal history of pulmonary embolism
CPT/HCPCS: 99281-25

== ENCOUNTER 2018-08-09 18:36 | Inpatient (IN) | payer BC, OTHER ==
--- NOTE | 2018-08-09 19:12 | PDOC ---
History of Present Illness - General Chief Complaint: Blurry Vision Stated Complaint: FREQ URINATION/BLURRY VISION/THIRST Time Seen by Provider: 08/09/18 19:09 - History of Present Illness Initial Comments: 08/09/18 19:24 The patient is a 32 year old female with a history of DVT who presents for evaluation of increased thirst and increased urination. The patient reports a 5 day history of increased sensation of thirst with associated increased and frequent urination prompting her presentation to the ED for further evaluation. She notes some associated blurry vision as well. She denies any history of similar symptoms and otherwise denies fevers, chills, SOB, chest pain, nausea, vomiting, abdominal pain, or changes with bowel movements. Past History - Past Medical History Allergies/Adverse Reactions: Allergies Allergy/AdvReac Type Severity Reaction Status Date / Time No Known Allergies Allergy Verified 07/07/17 06:48 Home Medications: Ambulatory Orders Gabapentin [Neurontin] 600 mg PO TID 10/03/17 Anemia: Yes (since childhood) Asthma: No Cancer: No Cardiac Disorders: No CVA: No COPD: No CHF: No Dementia: No Diabetes: No GI Disorders: No Disorders: No HTN: No (lymphaedema) Hypercholesterolemia: No Kidney Stones: No Liver Disease: No Seizures: No Thyroid Disease: No - Surgical History Abdominal Surgery: Yes (periumbilical hernia repair 01/09) - Immunization History Immunization Up to Date: Yes - Suicide/Smoking/Psychosocial Hx Smoking Status: No Smoking History: Never smoked Have you smoked in the past 12 months: No Number of Cigarettes Smoked Daily: 2 Information on smoking cessation initiated: No Hx Alcohol Use: No Drug/Substance Use Hx: No Substance Use Type: None Hx Substance Use Treatment: No Review of Systems - Review of Systems Comments:: 08/09/18 19:25 Constitutional: Increased Thirst. No fevers, chills, fatigue, malaise HEENT: No Rhinorrhea, nasal congestion, visual changes Cardiovascular: No chest pain, syncope, palpitations, lightheadedness Respiratory: No Cough, SOB, Hemoptysis, Gastrointestinal: No Abdominal pain, Nausea, Vomiting, Constipation, Diarrhea, Melena Genitourinary: Increased Frequency. No Dysuria, Urgency, Hesitancy, Hematuria, Flank pain Musculoskeletal: No Myalgia, arthralgia Skin: No rashes, itching, bruising, pallor Neurologic: No Headache, Dizziness, Numbness, Weakness, or Tingling Psychiatric: No Hallucinations. No SI or HI *Physical Exam - Vital Signs Last Vital Signs Temp Pulse Resp BP Pulse Ox 98.7 F 117 H 22 H 150/100 97 08/09/18 18:46 08/09/18 18:46 08/09/18 18:46 08/09/18 18:46 08/09/18 18:46 - Physical Exam Comments: 08/09/18 19:26 General Appearance: Nourished. Morbidly Obese. No Apparent Distress HEENT: EOMI, BOUCHRA. No Pharyngeal Erythema, Tonsillar Exudate, Tonsillar Erythema Neck: No Cervical Lymphadenopathy Respiratory/Chest: Lungs Clear, Normal Breath Sounds. No Crackles, Rales, Rhonchi, Wheezing Cardiovascular: Regular Rhythm, Regular Rate. No Murmur, Gallops, Rubs Gastrointestinal/Abdominal: Normal Bowel Sounds, Soft. No Guarding, Rebound, Tenderness Musculoskeletal: No CVA Tenderness Extremity: Normal Capillary Refill Integumentary: Normal Color, Dry, Warm Neurologic: Fully Oriented, Alert, Normal Mood/Affect, Normal Response, Heart Score/ECG Review #1 ECG reviewed & interpreted by me at: 22:20 General ECG Interpretation: Sinus Rhythm, Normal Intervals, No acute ischemic changes 08/09/18 22:20 Sinus Tachycardia hr 115 qrs 84 qtc 473 ED Treatment Course - LABORATORY CBC & Chemistry Diagram: 08/09/18 19:40 08/09/18 19:40 - ADDITIONAL ORDERS Additional order review: Laboratory Results 08/09/18 18:55 POC Glucometer 522 08/09/18 18:55 POC Glucometer 522 Medical Decision Making - Medical Decision Making 08/09/18 19:26 The patient is a 32 year old female with a history of DVT who presents for evaluation of increased thirst and increased urination. Differential includes but is not limited to: New onset diabetes, DKA, HHS, Hyperglycemia, Infectious, Metabolic Derangement. Given the patient's history and physical exam, it is likely the patient's symptoms are due to new onset diabetes and hyperglycemia. Finger stick glucose was 522 in triage. We will obtain a cbc, cmp, acetone, vbg , ua, ekg, chest plain film to evaluate further. We will treat with iv fluids in the meantime and continue to monitor and reassess while here in the ED. 08/09/18 22:02 CBC is unremarkable. CMP demonstrates a glucose of 500s with potassium of 4.1. VBG is unremarkable. Acetone is mildly positive. The patient's blood sugar continues to be in the 500s on finger stick after 1 liter of ns. We will continue with another 1 liter of ns and treat with 7 units of insulin. We will continue to monitor and reassess while here in the ED. 08/09/18 23:42 Repeat finger stick is 464. We will treat the patient with another 7 units of insulin and 1 liter of ns. The patient will require observation admission for further management. *DC/Admit/Observation/Transfer Diagnosis at time of Disposition: Hyperglycemia - Discharge Dispostion Condition at time of disposition: Stable Decision to Admit order: Yes - Referrals Referrals: Michael Sethi MD [Primary Care Provider] - - Patient Instructions - Post Discharge Activity
[2018-08-09] MEDS ORDERED: SODIUM CHLORIDE 1,000 ML IV STA ×3 (19:13→23:37)
--- NOTE | 2018-08-09 19:35 | PDOC ---
Attending Attestation - HPI HPI: The patient is a 32 year old female with a history of DVT who presents for evaluation of increased thirst and frequent urination for 5 days. She notes associated blurry vision as well. She states that she wa never told she was diabetic in the past. She denies any history of similar symptoms. She denies recent fevers, chills, SOB, chest pain, nausea, vomiting, abdominal pain, or changes with bowel movements. PCP: Dr. Sethi - Physicial Exam PE: GENERAL: Awake, alert, and fully oriented, in no acute distress HEAD: No signs of trauma EYES: PERRLA, EOMI, sclera anicteric, conjunctiva clear ENT: Auricles normal inspection, hearing grossly normal, nares patent, oropharynx clear without exudates. NECK: Normal ROM, supple, no lymphadenopathy, JVD, or masses LUNGS: Breath sounds equal, clear to auscultation bilaterally. No wheezes, and no crackles HEART: Regular rate and rhythm, normal S1 and S2, no murmurs, rubs or gallops ABDOMEN: Soft, nontender, morbidly obese, normoactive bowel sounds. No guarding , no rebound. No masses EXTREMITIES: Normal range of motion, no edema. No clubbing or cyanosis. No cords, erythema, or tenderness NEUROLOGICAL: Cranial nerves II through XII grossly intact. Normal speech, normal gait SKIN: Warm, Dry, normal turgor, no rashes or lesions noted. <Armida Azevedo - Last Filed: 08/09/18 20:42> - Resident Resident Name: Brian Pena - Medical Decision Making 08/10/18 01:43 Pt presents to the ED complaining of polydipsia, polyuria, and blurred vision. Labs show evidence of diabetes, with severe hypergylcemia. Patient did not have siginficant improvement after 3 L IVF and two doses of IV insulin-- admitted for observation and continued IV hydration. <Ally Upton - Last Filed: 08/10/18 01:46> Attestations - Attestations 08/09/18 20:45 Documentation prepared by Armida Azevedo, acting as medical service representative for Ally Upton MD. <Armida Azevedo - Last Filed: 08/09/18 20:42>
[2018-08-09 19:57] LABS: BASO % 1.2 % (0-2.0); EOS % 1.1 % (0-4.5); HEMATOCRIT 38.6 % (32.4-45.2); HEMOGLOBIN 12.4 GM/dL (10.7-15.3); LYMPH % 22.4 % (8-40); MCHC 32.2 g/dl (32.0-36.0); MEAN CELL VOLUME 83.7 fl (80-96); MONO % 4.3 % (3.8-10.2); PLATELET COUNT 84 K/MM3 (134-434); RBC 4.61 M/mm3 (3.60-5.2); RDW 15.2 % (11.6-15.6); WHITE BLOOD COUNT 6.3 K/mm3 (4.0-10.0)
[2018-08-09 20:33] LABS: VENOUS PC02 44.2 mmHg (41-51); VENOUS PH 7.34 (7.31-7.41)
[2018-08-09 20:49] LABS: PH,URINE 5.5 (5.0-8.0); URINE APPEARANCE CLEAR; URINE BILIRUBIN NEGATIVE (NEGATIVE); URINE COLOR YELLOW; URINE GLUCOSE (UA) >1000 (NEGATIVE); URINE KETONE 40 mg/dl (NEGATIVE)
[2018-08-09 20:50] LABS: URINE LEUK ESTERASE NEGATIVE (NEGATIVE); URINE NITRITE NEGATIVE (NEGATIVE); URINE PROTEIN NEGATIVE (NEGATIVE); URINE UROBILINOGEN 0.2 mg/dL (0.2-1.0)
[2018-08-09 20:50] LABS: ALBUMIN 3.3 g/dl (3.4-5.0); ALK PHOS 102 U/L (45-117); ANION GAP 10 MMOL/L (8-16); BILIRUBIN,TOTAL 0.4 mg/dL (0.2-1); BLOOD UREA NITROGEN 13 mg/dL (7-18); CALCIUM 8.5 mg/dL (8.5-10.1); CHLORIDE 98 mmol/L (98-107); CO2 24 mmol/L (21-32); POTASSIUM 4.1 mmol/L (3.5-5.1); SGOT/AST 16 U/L (15-37); SGPT/ALT 20 U/L (13-61); SODIUM 132 mmol/L (136-145); TOT PROT 7.3 g/dl (6.4-8.2)
[2018-08-09 20:51] LABS: GLUCOSE,RANDOM 578 mg/dL (74-106)
[2018-08-09] MEDS ORDERED: INSULIN REGULAR HUMAN 100 UNITS/ML *VIAL IVPUSH ONE ×2 (21:21→23:36)
[2018-08-09] MEDS ORDERED: INSULIN REGULAR HUMAN 100 UNITS/ML *VIAL ONE (21:58)
--- NOTE | 2018-08-10 02:02 | HP ---
Admitting History and Physical - Primary Care Physician PCP: Michael Sethi - Admission Chief Complaint: Frequent Thirst, Urinary Frequency History of Present Illness: This is a 32 y/o young woman with a past medical history of DVT, PE (no ACs), Lymphedema, Severe Obesity. Who presents to the ED with increased thirst and urinary frequency x 5days. Patient reports having blurred vision and a decreased appetite. Patient reports eating outside packaged and processed foods due to her current living situation. She reports living in a friend's room with her mother. Patient denies SOB, CP, palpitations, AP, N/V/D, constipation. History Source: Patient Limitations to Obtaining History: No Limitations - Past Medical History Cardiovascular: Yes: Deep Vein Thrombosis. No: AFIB Pulmonary: Yes: Pulmonary Embolus Gastrointestinal: No: Ascites, Cancer Renal/: Yes: Other (MENORRHAGIA). No: Renal Failure ...LMP: 08/16/14 Heme/Onc: Yes: Anemia Psych: Yes: Addictions (ETOH) - Past Surgical History Past Surgical History: Yes: Hernia Repair - Smoking History Smoking history: Never smoked Have you smoked in the past 12 months: No Aproximately how many cigarettes per day: 2 - Alcohol/Substance Use Hx Alcohol Use: No History of Substance Use: reports: None - Social History Usual Living Arrangement: Yes: Other (with Mother in a friends room) ADL: Independent Occupation: works at the [employer] History of Recent Travel: No Home Medications - Allergies Allergies/Adverse Reactions: Allergies Allergy/AdvReac Type Severity Reaction Status Date / Time No Known Allergies Allergy Verified 08/10/18 06:18 - Home Medications Home Medications: Ambulatory Orders Gabapentin [Neurontin] 600 mg PO TID 10/03/17 Family Disease History - Family Disease History Family Disease History: Other: Father (Varicose veis), Mother (Varicose veins) Review of Systems - Review of Systems Constitutional: reports: Loss of Appetite Eyes: reports: Blurred Vision HENT: reports: No Symptoms Neck: reports: No Symptoms Cardiovascular: reports: No Symptoms Respiratory: reports: No Symptoms Gastrointestinal: reports: No Symptoms Genitourinary: reports: Frequency Breasts: reports: No Symptoms Reported Musculoskeletal: reports: No Symptoms Integumentary: reports: No Symptoms Neurological: reports: No Symptoms Endocrine: reports: Increased Thirst, Other (Polyuria) Hematology/Lymphatic: reports: No Symptoms Psychiatric: reports: No Symptoms Physical Examination Vital Signs: Vital Signs Temperature 98.7 F 08/09/18 18:46 Pulse Rate 120 H 08/09/18 20:28 Respiratory Rate 20 08/09/18 20:28 Blood Pressure 121/66 08/09/18 20:28 O2 Sat by Pulse Oximetry (%) 95 08/09/18 20:28 Constitutional: Yes: Well Nourished, No Distress, Calm, Obese Eyes: Yes: WNL, Conjunctiva Clear, EOM Intact, PERRL HENT: Yes: WNL, Atraumatic, Normocephalic Neck: Yes: WNL, Supple, Trachea Midline Cardiovascular: Yes: Tachycardia, S1, S2 Respiratory: Yes: WNL, Regular, CTA Bilaterally Gastrointestinal: Yes: WNL, Normal Bowel Sounds, Soft, Abdomen, Obese Renal/: Yes: WNL Breast(s): Yes: WNL Musculoskeletal: Yes: WNL Extremities: Yes: WNL Edema: Yes Edema: LLE: 2+, RLE: 2+ Peripheral Pulses WNL: Yes Neurological: Yes: WNL, Alert, Oriented, Cran Nerves II-XII Intact ...Motor Strength: WNL Psychiatric: Yes: WNL, Alert, Oriented Labs: CBC, BMP 08/09/18 19:40 08/09/18 19:40 Laboratory Results - last 24 hr 08/09/18 08/09/18 08/09/18 18:55 19:13 19:40 WBC 6.3 RBC 4.61 Hgb 12.4 Hct 38.6 MCV 83.7 MCH 27.0 MCHC 32.2 RDW 15.2 Plt Count 84 L D MPV 11.0 Absolute Neuts (auto) 4.5 Neutrophils % 71.0 Lymphocytes % 22.4 Monocytes % 4.3 Eosinophils % 1.1 Basophils % 1.2 D Nucleated RBC % 0 VBG pH POC VBG pCO2 POC VBG pO2 VBG HCO3 VBG O2 Sat ([place]) VBG Base Excess Sodium Potassium Chloride Carbon Dioxide Anion Gap BUN Creatinine Creat Clearance w eGFR POC Glucometer 522 Random Glucose Hemoglobin A1c % Calcium Total Bilirubin AST ALT Alkaline Phosphatase Creatine Kinase Troponin I Total Protein Albumin Serum , Qual Urine Color Yellow Urine Appearance Clear Urine pH 5.5 Ur Specific [place] 1.045 H Urine Protein Negative Urine Glucose (UA) >1000 Urine Ketones 40 mg/dl Urine Blood Trace Urine Nitrite Negative Urine Bilirubin Negative Urine Urobilinogen 0.2 Ur Leukocyte Esterase Negative Acetone, Qual 08/09/18 08/09/18 08/09/18 19:40 19:40 19:40 WBC RBC Hgb Hct MCV MCH MCHC RDW Plt Count MPV Absolute Neuts (auto) Neutrophils % Lymphocytes % Monocytes % Eosinophils % Basophils % Nucleated RBC % VBG pH 7.34 POC VBG pCO2 44.2 POC VBG pO2 54.0 H VBG HCO3 23.5 VBG O2 Sat ([place]) 84.9 H VBG Base Excess -1.7 Sodium 132 L Potassium 4.1 Chloride 98 Carbon Dioxide 24 Anion Gap 10 BUN 13 Creatinine 1.0 Creat Clearance w eGFR 63.85 POC Glucometer Random Glucose 578 H* Hemoglobin A1c % Calcium 8.5 Total Bilirubin 0.4 AST 16 ALT 20 Alkaline Phosphatase 102 Creatine Kinase 93 Troponin I < 0.02 Total Protein 7.3 Albumin 3.3 L Serum , Qual Urine Color Urine Appearance Urine pH Ur Specific [place] Urine Protein Urine Glucose (UA) Urine Ketones Urine Blood Urine Nitrite Urine Bilirubin Urine Urobilinogen Ur Leukocyte Esterase Acetone, Qual Positive small 1+ H 08/09/18 08/09/18 08/09/18 19:40 21:17 23:32 WBC RBC Hgb Hct MCV MCH MCHC RDW Plt Count MPV Absolute Neuts (auto) Neutrophils % Lymphocytes % Monocytes % Eosinophils % Basophils % Nucleated RBC % VBG pH POC VBG pCO2 POC VBG pO2 VBG HCO3 VBG O2 Sat ([place]) VBG Base Excess Sodium Potassium Chloride Carbon Dioxide Anion Gap BUN Creatinine Creat Clearance w eGFR POC Glucometer 597 464 Random Glucose Hemoglobin A1c % Calcium Total Bilirubin AST ALT Alkaline Phosphatase Creatine Kinase Troponin I Total Protein Albumin Serum , Qual Negative Urine Color Urine Appearance Urine pH Ur Specific [place] Urine Protein Urine Glucose (UA) Urine Ketones Urine Blood Urine Nitrite Urine Bilirubin Urine Urobilinogen Ur Leukocyte Esterase Acetone, Qual Imaging - Results Chest X-ray: Image Reviewed Problem List - Problems (1) New onset type 2 diabetes mellitus Assessment/Plan: Glucose 597 Serum Acetone +1 No Anion Gap NS Boluses, Novolin given in ED- Glucose 464 Appreciate Endocrinology consult ISS BGMs Q1H, then Q2h until Glucose < 200 RD consult Monitor CBC, BMP Monitor vitals Code(s): E11.9 - TYPE 2 DIABETES MELLITUS WITHOUT COMPLICATIONS (2) Lymphedema of both lower extremities Assessment/Plan: Timmy wrap Elevate extremities Code(s): I89.0 - LYMPHEDEMA, NOT ELSEWHERE CLASSIFIED (3) Deep venous thrombosis Assessment/Plan: Hx DVT No current ACs Patient denies LE/calf pain Code(s): I82.409 - ACUTE EMBOLISM AND THOMBOS UNSP DEEP VN UNSP LOWER EXTREMITY Qualifiers: Laterality: right (4) Pulmonary embolism Assessment/Plan: hx of PE no AC Patient denies SOB, CP, or palpitations Code(s): I26.99 - OTHER PULMONARY EMBOLISM WITHOUT ACUTE COR PULMONALE Qualifiers: Chronicity: acute (5) Obesity, morbid, BMI 50 or higher Assessment/Plan: Counseled on weight reduction RD eval Code(s): E66.01 - MORBID (SEVERE) OBESITY DUE TO EXCESS CALORIES Assessment/Plan This is a 32 y/o young woman with a PMHx of: DVT, PE (no ACs), Severe Obesity, Lymphedema. Admitted for [facility] for further evaluation of their emergent condition. Plan: See Problem List FEN NS@60ml/hr Replete lytes prn NPO DVT ppx OOB TEDs Heparin SQ Code Status: Full Code Dispo: Requires Inpatient Care Visit type - Emergency Visit Emergency Visit: Yes ED Registration Date: 08/09/18 Care time: The patient presented to the Emergency Department on the above date and was hospitalized for further evaluation of their emergent condition. - New Patient This patient is new to me today: Yes Date on this admission: 08/09/18 - Critical Care Critical Care patient: No
[2018-08-10] MEDS ORDERED: INSULIN (NOVOLOG) ASPART 100 UNITS/ML 10ML VIAL SQ ONE (02:14)
[2018-08-10] MEDS ORDERED: INSULIN (NOVOLOG) ASPART 100 UNITS/ML 10ML VIAL ONE ×3 (02:33→12:50)
[2018-08-10 07:04] LABS: BASO % 0.3 % (0-2.0); EOS % 0.7 % (0-4.5); HEMATOCRIT 34.3 % (32.4-45.2); LYMPH % 25.9 % (8-40); MCH 26.2 pg (25.7-33.7); MEAN CELL VOLUME 81.6 fl (80-96); MEAN PLT VOLUME 10.5 fl (7.5-11.1); MONO % 4.6 % (3.8-10.2); NEUT % 68.5 % (42.8-82.8); PLATELET COUNT 87 K/MM3 (134-434); WHITE BLOOD COUNT 5.8 K/mm3 (4.0-10.0)
[2018-08-10 07:53] LABS: ALBUMIN 2.9 g/dl (3.4-5.0); ALK PHOS 81 U/L (45-117); ANION GAP 8 MMOL/L (8-16); BILIRUBIN,TOTAL 0.4 mg/dL (0.2-1); BLOOD UREA NITROGEN 13 mg/dL (7-18); CALCIUM 7.8 mg/dL (8.5-10.1); CHLORIDE 103 mmol/L (98-107); CO2 24 mmol/L (21-32); CREATININE 0.6 mg/dL (0.55-1.3); PHOSPHOROUS 3.2 mg/dL (2.5-4.9); POTASSIUM 3.8 mmol/L (3.5-5.1); SGOT/AST 10 U/L (15-37); SGPT/ALT 17 U/L (13-61); SODIUM 136 mmol/L (136-145); TOT PROT 6.5 g/dl (6.4-8.2)
[2018-08-10 07:58] LABS: GLUCOSE,RANDOM 336 mg/dL (74-106)
[2018-08-10] MEDS: INSULIN SLIDING SCALE (NOVOLOG) 1 VIAL SQ SCH ×4 (08:00→21:39)
[2018-08-10] MEDS ORDERED: ACETAMINOPHEN 325 MG TABLET (FP) PO PRN (10:45)
--- NOTE | 2018-08-10 10:47 | PN ---
Progress Note, Physician Chief Complaint: Uncontrolled Diabetes Mellitus History of Present Illness: NAD comfortable Awaiting room - Current Medication List Current Medications: Active Medications Sodium Chloride (Normal Saline -) 1,000 mls @ 60 mls/hr IV ASDIR [facility] Insulin Aspart (Novolog Vial Sliding Scale -) 1 vial SQ ACHS [facility]; Protocol Last Admin: 08/10/18 08:00 Dose: 8 units - Objective Vital Signs: Vital Signs Temperature 98.6 F 08/10/18 06:29 Pulse Rate 93 H 08/10/18 06:29 Respiratory Rate 20 08/09/18 20:28 Blood Pressure 167/92 08/10/18 06:29 O2 Sat by Pulse Oximetry (%) 96 08/10/18 06:29 Constitutional: Yes: Well Nourished, No Distress, Calm, Obese Cardiovascular: Yes: Regular Rate and Rhythm Respiratory: Yes: Regular Gastrointestinal: Yes: WNL Genitourinary: Yes: WNL Musculoskeletal: Yes: WNL Extremities: Yes: WNL Edema: No Peripheral Pulses WNL: Yes Neurological: Yes: Alert, Oriented Psychiatric: Yes: Alert, Oriented Labs: CBC, BMP 08/10/18 06:30 08/10/18 06:30 Assessment/Plan (1) New onset type 2 diabetes mellitus Assessment/Plan: -Glucose 597 -Serum Acetone +1 -No Anion Gap -NS Boluses, Novolin given in ED -Appreciate Endocrinology consult -Novolog sliding scale -RD consult Code(s): E11.9 - TYPE 2 DIABETES MELLITUS WITHOUT COMPLICATIONS (2) Lymphedema of both lower extremities Assessment/Plan: -Timmy wrap -Elevate extremities Code(s): I89.0 - LYMPHEDEMA, NOT ELSEWHERE CLASSIFIED (3) Deep venous thrombosis Assessment/Plan: -Hx DVT -No current ACs -Patient denies LE/calf pain Code(s): I82.409 - ACUTE EMBOLISM AND THOMBOS UNSP DEEP VN UNSP LOWER EXTREMITY Qualifiers: Laterality: right (4) Pulmonary embolism Assessment/Plan: -hx of PE -no AC -Patient denies SOB, CP, or palpitations Code(s): I26.99 - OTHER PULMONARY EMBOLISM WITHOUT ACUTE COR PULMONALE Qualifiers: Chronicity: acute (5) Obesity, morbid, BMI 50 or higher Assessment/Plan: -Counseled on weight reduction -RD eval Code(s): E66.01 - MORBID (SEVERE) OBESITY DUE TO EXCESS CALORIES
[2018-08-10] MEDS: SODIUM CHLORIDE 1,000 ML IV SCH (12:30)
[2018-08-10] MEDS ORDERED: INSULIN (LEVEMIR) 100 UNITS/ML UNITS SQ ONE (12:50)
[2018-08-10] MEDS: INSULIN (LEVEMIR) 100 UNITS/ML UNITS SQ SCH ×2 (13:00→21:36)
[2018-08-10] MEDS ORDERED: metFORMIN HCL 500 MG TABLET (FP) ONE (15:33)
[2018-08-10] MEDS: metFORMIN HCL 500 MG TABLET (FP) PO SCH (16:13)
[2018-08-10] MEDS: GABAPENTIN 300 MG CAPSULE (FP) PO SCH ×2 (16:13→21:36)
[2018-08-10] MEDS ORDERED: FLUCONAZOLE 100 MG TABLET (UD) PO ONE (23:15)
[2018-08-11] MEDS: SODIUM CHLORIDE 1,000 ML IV SCH ×2 (00:32→11:29)
[2018-08-11] MEDS: GABAPENTIN 300 MG CAPSULE (FP) PO SCH ×3 (06:14→21:18)
[2018-08-11] MEDS: metFORMIN HCL 500 MG TABLET (FP) PO SCH ×2 (06:14→16:26)
[2018-08-11] MEDS: INSULIN (LEVEMIR) 100 UNITS/ML UNITS SQ SCH ×2 (06:14→21:17)
[2018-08-11] MEDS: INSULIN SLIDING SCALE (NOVOLOG) 1 VIAL SQ SCH ×4 (06:16→21:22)
[2018-08-11] MEDS ORDERED: INSULIN (NOVOLOG MIX 70/30) 100 UNITS/ML MDV SQ ONE (06:46)
--- NOTE | 2018-08-11 10:33 | EKG ---
Test Reason : Blood Pressure : / mmHG Vent. Rate : 115 BPM Atrial Rate : 115 BPM P-R Int : 168 ms QRS Dur : 084 ms QT Int : 342 ms P-R-T Axes : 054 -08 050 degrees QTc Int : 473 ms SINUS TACHYCARDIA POSSIBLE LATERAL INFARCT , AGE UNDETERMINED ABNORMAL ECG WHEN COMPARED WITH ECG OF 06-JUL-2017 18:38, BORDERLINE CRITERIA FOR LATERAL INFARCT ARE NOW PRESENT NONSPECIFIC T WAVE ABNORMALITY NOW EVIDENT IN ANTERIOR LEADS Confirmed by AAKASH TITUS, PETTY ([id number]) on 08/11/2018 10:33:04 AM Referred By: Confirmed By:PETTY FINN MD
--- NOTE | 2018-08-11 13:35 | PN ---
Progress Note, Physician Chief Complaint: Uncontrolled DM History of Present Illness: Previous notes and events noted awake and alert NAD patient sts feeling better - Current Medication List Current Medications: Active Medications Acetaminophen (Tylenol -) 650 mg PO Q4H PRN PRN Reason: PAIN OR FEVER Last Admin: 08/10/18 20:49 Dose: 650 mg Gabapentin (Neurontin -) 600 mg PO TID [facility] Last Admin: 08/11/18 13:21 Dose: 600 mg Sodium Chloride (Normal Saline -) 1,000 mls @ 60 mls/hr IV ASDIR [facility] Last Admin: 08/11/18 11:29 Dose: Not Given Insulin Aspart (Novolog Vial Sliding Scale -) 1 vial SQ ACHS [facility]; Protocol Last Admin: 08/11/18 11:29 Dose: 8 units Insulin Detemir (Levemir Vial) 22 units SQ BID@0700,2200 [facility] Last Admin: 08/11/18 06:14 Dose: 22 units Metformin HCl (Glucophage -) 1,000 mg PO BID@0700,1630 [facility] Last Admin: 08/11/18 06:14 Dose: 1,000 mg - Objective Vital Signs: Vital Signs Temperature 98.6 F 08/11/18 09:00 Pulse Rate 95 H 08/11/18 09:00 Respiratory Rate 18 08/11/18 09:00 Blood Pressure 150/59 L 08/11/18 09:00 O2 Sat by Pulse Oximetry (%) 98 08/11/18 09:00 Constitutional: Yes: No Distress, Calm, Obese Eyes: Yes: Conjunctiva Clear HENT: Yes: Atraumatic Cardiovascular: Yes: Regular Rate and Rhythm Respiratory: Yes: Regular, CTA Bilaterally Gastrointestinal: Yes: Normal Bowel Sounds, Soft, Abdomen, Obese Musculoskeletal: Yes: WNL Extremities: Yes: WNL Neurological: Yes: Alert, Oriented Psychiatric: Yes: Alert, Oriented Labs: CBC, BMP 08/10/18 06:30 08/10/18 06:30 Problem List - Problems (1) New onset type 2 diabetes mellitus Assessment/Plan: -Endo consult -BGM AC HS -ISS -Levemir BID -HgA1c 10.2% -No AG -Serum Acetone 1+ Code(s): E11.9 - TYPE 2 DIABETES MELLITUS WITHOUT COMPLICATIONS (2) Lymphedema of both lower extremities Assessment/Plan: -elevate B/L LE -[place] wrap Code(s): I89.0 - LYMPHEDEMA, NOT ELSEWHERE CLASSIFIED (3) Deep venous thrombosis Assessment/Plan: -dvt ppx Code(s): I82.409 - ACUTE EMBOLISM AND THOMBOS UNSP DEEP VN UNSP LOWER EXTREMITY Qualifiers: Laterality: right (4) Pulmonary embolism Assessment/Plan: -Hx of PE -No AC ? Code(s): I26.99 - OTHER PULMONARY EMBOLISM WITHOUT ACUTE COR PULMONALE Qualifiers: Chronicity: acute Assessment/Plan see problem list
[2018-08-11 13:53] VITALS: BMI 88.2
[2018-08-11] MEDS ORDERED: PT OWN MED DRAWER 7, Y5N ONE (21:08)
[2018-08-11] MEDS: HEPARIN NA (PORCINE) 5,000 UNITS/ML 1ML VIAL SQ SCH (21:18)
--- NOTE | 2018-08-12 01:27 | CONSULT ---
Consult Consult Specialty:: endocrine Referred by:: allyson phipps np Reason for Consultation:: diabetes mellitus new onset - History of Present Illness Chief Complaint: high sugars History of Present Illness: 32 y/o young woman with a past medical history of DVT, PE (no ACs), Lymphedema, Severe Obesity. Who presented to the ED with increased thirst and urinary frequency, blurred vision and a decreased appetite. Patient reports poor diet, and not feeling well,muscle weakness and cramps,she denies fever nause or vomiting. - Past Medical History Cardio/Vascular: Yes: Deep Vein Thrombosis. No: AFIB Pulmonary: Yes: Pulmonary Embolus Gastrointestinal: No: Ascites, Cancer Renal/: Yes: Other (MENORRHAGIA). No: Renal Failure ...LMP: 06/08/18 ...: No Psych: Yes: Addictions (ETOH) Additional Medical History: MORBID OBESITY - Past Surgical History Past Surgical History: Yes: Hernia Repair - Alcohol/Substance Use Hx Alcohol Use: No History of Substance Use: reports: None - Smoking History Smoking history: Never smoked Have you smoked in the past 12 months: No Aproximately how many cigarettes per day: 2 - Social History Usual Living Arrangement: With Parent ADL: Independent Occupation: works at the [employer] History of Recent Travel: No Home Medications - Allergies Allergies/Adverse Reactions: Allergies Allergy/AdvReac Type Severity Reaction Status Date / Time No Known Allergies Allergy Verified 08/10/18 06:18 - Home Medications Home Medications: Ambulatory Orders Gabapentin [Neurontin] 600 mg PO TID 10/03/17 Family Disease History - Family Disease History Family Disease History: Other: Father (Varicose veis), Mother (Varicose veins) Review of Systems - Review of Systems Constitutional: reports: Lethargy, Weakness Eyes: reports: Blurred Vision HENT: reports: No Symptoms Neck: reports: No Symptoms Cardiovascular: reports: No Symptoms Respiratory: reports: No Symptoms Gastrointestinal: reports: Constipation, Nausea Genitourinary: reports: Frequency Breasts: reports: No Symptoms Reported Musculoskeletal: reports: Muscle Pain, Muscle Weakness Neurological: reports: Numbness Endocrine: reports: Unexplained Weight Loss Physical Exam Vital Signs: Vital Signs Temperature 98.6 F 08/11/18 20:27 Pulse Rate 103 H 08/11/18 20:27 Respiratory Rate 20 08/11/18 20:27 Blood Pressure 152/92 08/11/18 20:27 O2 Sat by Pulse Oximetry (%) 98 08/11/18 20:27 Constitutional: Yes: Anxious Eyes: Yes: EOM Intact HENT: Yes: Normocephalic Neck: Yes: Trachea Midline, Thyromegaly Cardiovascular: Yes: Regular Rate and Rhythm Respiratory: Yes: CTA Bilaterally Gastrointestinal: Yes: Normal Bowel Sounds ...Rectal Exam: Yes: Deferred Renal/: Yes: WNL Musculoskeletal: Yes: WNL, Joint Swelling, Muscle Weakness Extremities: Yes: Delayed Capillary Refill Edema: LLE: 1+, RLE: 1+ Neurological: Yes: Alert, Oriented Labs: CBC, BMP 08/10/18 06:30 08/10/18 06:30 Problem List - Problems (1) Hyperglycemia Code(s): R73.9 - HYPERGLYCEMIA, UNSPECIFIED (2) New onset type 2 diabetes mellitus Code(s): E11.9 - TYPE 2 DIABETES MELLITUS WITHOUT COMPLICATIONS (3) Thrombocytopenia Code(s): D69.6 - THROMBOCYTOPENIA, UNSPECIFIED (4) Anxiety and depression Code(s): F41.9 - ANXIETY DISORDER, UNSPECIFIED; F32.9 - MAJOR DEPRESSIVE DISORDER, SINGLE EPISODE, UNSPECIFIED (5) Edema Code(s): R60.9 - EDEMA, UNSPECIFIED Qualifiers: Edema type: localized Qualified Code(s): R60.0 - Localized edema (6) Hepatosplenomegaly Code(s): R16.2 - HEPATOMEGALY WITH SPLENOMEGALY, NOT ELSEWHERE CLASSIFIED Assessment/Plan Current Active Problems Hyperglycemia (Acute) New onset type 2 diabetes mellitus (Acute) thyroid goiter morbid obesity steroid resistant Laboratory Results - last 24 hr 08/11/18 08/11/18 08/11/18 06:15 11:26 16:25 POC Glucometer 349 342 318 08/11/18 21:21 POC Glucometer 308 Laboratory Tests 08/10/18 08/10/18 08/11/18 17:32 20:59 06:15 POC Glucometer 292 292 349 08/11/18 08/11/18 08/11/18 11:26 16:25 21:21 POC Glucometer 342 318 308 Laboratory Tests 08/10/18 06:30 TSH 1.26 plan: check dexa suppresion test continue insulin novolog scale levemir 22 units bid will need titration doses as outpatient
[2018-08-12] MEDS ORDERED: GABAPENTIN 100 MG CAPSULE (FP) ONE ×3 (05:33→20:58)
[2018-08-12] MEDS ORDERED: GABAPENTIN 400 MG CAPSULE (FP) ONE ×3 (05:33→20:58)
[2018-08-12] MEDS: GABAPENTIN PO SCH ×3 (05:57→21:21)
[2018-08-12] MEDS: INSULIN (LEVEMIR) 100 UNITS/ML UNITS SQ SCH ×2 (06:02→21:21)
[2018-08-12] MEDS: metFORMIN HCL 500 MG TABLET (FP) PO SCH ×2 (06:02→16:27)
[2018-08-12] MEDS: INSULIN SLIDING SCALE (NOVOLOG) 1 VIAL SQ SCH ×4 (06:03→21:27)
[2018-08-12 07:30] LABS: HEMATOCRIT 32.6 % (32.4-45.2); HEMOGLOBIN 10.8 GM/dL (10.7-15.3); MCHC 33.2 g/dl (32.0-36.0); MEAN CELL VOLUME 81.3 fl (80-96); MEAN PLT VOLUME 10.6 fl (7.5-11.1); PLATELET COUNT 65 K/MM3 (134-434); RDW 15.2 % (11.6-15.6); WHITE BLOOD COUNT 4.1 K/mm3 (4.0-10.0)
[2018-08-12] MEDS: SODIUM CHLORIDE 1,000 ML IV SCH (09:11)
[2018-08-12] MEDS: HEPARIN NA (PORCINE) 5,000 UNITS/ML 1ML VIAL SQ SCH ×2 (09:13→21:22)
[2018-08-12 10:20] LABS: BLOOD UREA NITROGEN 9 mg/dL (7-18); CREATININE 0.5 mg/dL (0.55-1.3); GLUCOSE,RANDOM 294 mg/dL (74-106); POTASSIUM 3.5 mmol/L (3.5-5.1); SODIUM 135 mmol/L (136-145)
[2018-08-12 10:21] LABS: ALBUMIN 2.7 g/dl (3.4-5.0); ALK PHOS 69 U/L (45-117); ANION GAP 7 MMOL/L (8-16); BILIRUBIN,TOTAL 0.4 mg/dL (0.2-1); CALCIUM 7.9 mg/dL (8.5-10.1); CHLORIDE 103 mmol/L (98-107); CO2 25 mmol/L (21-32); SGOT/AST 9 U/L (15-37); SGPT/ALT 15 U/L (13-61)
[2018-08-12 10:22] LABS: TOT PROT 6.2 g/dl (6.4-8.2)
--- NOTE | 2018-08-12 11:03 | PN ---
Progress Note, Physician Chief Complaint: Uncontrolled Diabetes Mellitus History of Present Illness: NAD comfortable Seen by Endocrinology BGM improved Awaiting social work intervention - Current Medication List Current Medications: Active Medications Acetaminophen (Tylenol -) 650 mg PO Q4H PRN PRN Reason: PAIN OR FEVER Last Admin: 08/10/18 20:49 Dose: 650 mg Dexamethasone (Decadron -) 1 mg PO NOW ONE Stop: 08/12/18 12:01 Gabapentin 400 mg/ Gabapentin (200 mg) 600 mg PO TID [facility] Last Admin: 08/12/18 05:57 Dose: 600 mg Heparin Sodium (Porcine) (Heparin -) 5,000 unit SQ BID [facility] Last Admin: 08/12/18 09:13 Dose: 5,000 unit Sodium Chloride (Normal Saline -) 1,000 mls @ 60 mls/hr IV ASDIR [facility] Last Admin: 08/12/18 09:11 Dose: Not Given Insulin Aspart (Novolog Vial Sliding Scale -) 1 vial SQ [facility]; Protocol Last Admin: 08/12/18 06:03 Dose: 6 units Insulin Detemir (Levemir Vial) 22 units SQ BID@0700,2200 [facility] Last Admin: 08/12/18 06:02 Dose: 22 units Metformin HCl (Glucophage -) 1,000 mg PO BID@0700,1630 [facility] Last Admin: 08/12/18 06:02 Dose: 1,000 mg - Objective Vital Signs: Vital Signs Temperature 98.6 F 08/12/18 09:00 Pulse Rate 91 H 08/12/18 09:00 Respiratory Rate 20 08/12/18 09:00 Blood Pressure 164/68 08/12/18 09:00 O2 Sat by Pulse Oximetry (%) 95 08/12/18 09:00 Constitutional: Yes: Well Nourished, No Distress, Calm, Obese Cardiovascular: Yes: Regular Rate and Rhythm Respiratory: Yes: Regular Gastrointestinal: Yes: WNL, Normal Bowel Sounds, Soft, Abdomen, Obese Musculoskeletal: Yes: WNL Extremities: Yes: WNL Edema: No Peripheral Pulses WNL: Yes Neurological: Yes: Alert, Oriented Psychiatric: Yes: Alert, Oriented Labs: CBC, BMP 08/12/18 06:00 08/12/18 06:00 Assessment/Plan (1) New onset type 2 diabetes mellitus Assessment/Plan: -Glucose 597 -Serum Acetone +1 -No Anion Gap -NS Boluses, Novolin given in ED -Appreciate Endocrinology consult -Novolog sliding scale -RD consult -A1c 10.2 -uncontrolled 2/2 to social support Code(s): E11.9 - TYPE 2 DIABETES MELLITUS WITHOUT COMPLICATIONS (2) Lymphedema of both lower extremities Assessment/Plan: -Timmy wrap -Elevate extremities Code(s): I89.0 - LYMPHEDEMA, NOT ELSEWHERE CLASSIFIED (3) Deep venous thrombosis Assessment/Plan: -Hx DVT -No current ACs -Patient denies LE/calf pain Code(s): I82.409 - ACUTE EMBOLISM AND THOMBOS UNSP DEEP VN UNSP LOWER EXTREMITY Qualifiers: Laterality: right (4) Pulmonary embolism Assessment/Plan: -hx of PE -no AC -Patient denies SOB, CP, or palpitations Code(s): I26.99 - OTHER PULMONARY EMBOLISM WITHOUT ACUTE COR PULMONALE Qualifiers: Chronicity: acute (5) Obesity, morbid, BMI 50 or higher Assessment/Plan: -Counseled on weight reduction -RD eval Code(s): E66.01 - MORBID (SEVERE) OBESITY DUE TO EXCESS CALORIES
[2018-08-12] MEDS ORDERED: PT OWN MED DRAWER 7, Y5N ONE (11:15)
[2018-08-12] MEDS ORDERED: DEXAMETHASONE 0.5 MG TABLET PO ONE (12:00)
[2018-08-12] MEDS ORDERED: INSULIN (NOVOLOG) ASPART 100 UNITS/ML 10ML VIAL ONE (21:16)
[2018-08-13] MEDS ORDERED: GABAPENTIN 100 MG CAPSULE (FP) ONE ×2 (04:23→13:01)
[2018-08-13] MEDS ORDERED: GABAPENTIN 400 MG CAPSULE (FP) ONE ×2 (04:24→13:01)
[2018-08-13] MEDS: GABAPENTIN PO SCH ×2 (05:33→13:16)
[2018-08-13] MEDS: metFORMIN HCL 500 MG TABLET (FP) PO SCH (06:02)
[2018-08-13] MEDS: INSULIN (LEVEMIR) 100 UNITS/ML UNITS SQ SCH (06:03)
[2018-08-13] MEDS: INSULIN SLIDING SCALE (NOVOLOG) 1 VIAL SQ SCH ×2 (06:04→11:31)
[2018-08-13] MEDS: HEPARIN NA (PORCINE) 5,000 UNITS/ML 1ML VIAL SQ SCH (09:03)
[2018-08-13 10:04] VITALS: TEMP 98.4
--- NOTE | 2018-08-13 10:58 | DS ---
Physical Examination Vital Signs: Vital Signs Temperature 98.4 F 08/13/18 10:00 Pulse Rate 75 08/13/18 10:00 Respiratory Rate 20 08/13/18 10:00 Blood Pressure 123/61 08/13/18 10:00 O2 Sat by Pulse Oximetry (%) 99 08/13/18 09:00 Findings/Remarks: This is a 32 y/o young woman with a past medical history of DVT, PE (no ACs), Lymphedema, Severe Obesity. Who presents to the ED with increased thirst and urinary frequency x 5days. Patient reports having blurred vision and a decreased appetite. Patient reports eating outside packaged and processed foods due to her current living situation. She reports living in a friend's room with her mother. Patient denies SOB, CP, palpitations, AP, N/V/D, constipation. Pt states she has a temporary place to stay. SHe has already started procedure for DSS for halfway and home placement. Constitutional: Yes: Well Nourished, No Distress, Calm, Obese Cardiovascular: Yes: Regular Rate and Rhythm Respiratory: Yes: Regular Gastrointestinal: Yes: Normal Bowel Sounds, Soft, Abdomen, Obese Musculoskeletal: Yes: WNL Extremities: Yes: WNL Edema: No Peripheral Pulses WNL: Yes Neurological: Yes: Alert, Oriented Psychiatric: Yes: Alert, Oriented Labs: CBC, BMP 08/12/18 06:00 08/12/18 06:00 Discharge Summary Reason For Visit: HYPERGLYCEMIA/TACHYCRDIA Current Active Problems Hyperglycemia (Acute) New onset type 2 diabetes mellitus (Acute) Hospital Course: Laboratory Last Values WBC 4.1 K/mm3 (4.0-10.0) 08/12/18 06:00 RBC 4.00 M/mm3 (3.60-5.2) 08/12/18 06:00 Hgb 10.8 GM/dL (10.7-15.3) 08/12/18 06:00 Hct 32.6 % (32.4-45.2) 08/12/18 06:00 MCV 81.3 fl (80-96) 08/12/18 06:00 MCH 27.0 pg (25.7-33.7) 08/12/18 06:00 MCHC 33.2 g/dl (32.0-36.0) 08/12/18 06:00 RDW 15.2 % (11.6-15.6) 08/12/18 06:00 Plt Count 65 K/MM3 (134-434) L D 08/12/18 06:00 MPV 10.6 fl (7.5-11.1) 08/12/18 06:00 Absolute Neuts (auto) 4.0 K/mm3 (1.5-8.0) 08/10/18 06:30 Neutrophils % 68.5 % (42.8-82.8) 08/10/18 06:30 Lymphocytes % 25.9 % (8-40) 08/10/18 06:30 Monocytes % 4.6 % (3.8-10.2) 08/10/18 06:30 Eosinophils % 0.7 % (0-4.5) 08/10/18 06:30 Basophils % 0.3 % (0-2.0) 08/10/18 06:30 Nucleated RBC % 0 % (0-0) 08/10/18 06:30 VBG pH 7.34 (7.31-7.41) 08/09/18 19:40 POC VBG pCO2 44.2 mmHg (41-51) 08/09/18 19:40 POC VBG pO2 54.0 mmHg (30-40) H 08/09/18 19:40 VBG HCO3 23.5 mmol/L (23-29) 08/09/18 19:40 VBG O2 Sat ([place]) 84.9 % (70-80) H 08/09/18 19:40 VBG Base Excess -1.7 meq/l (-2-2) 08/09/18 19:40 Sodium 135 mmol/L (136-145) L 08/12/18 06:00 Potassium 3.5 mmol/L (3.5-5.1) 08/12/18 06:00 Chloride 103 mmol/L (98-107) 08/12/18 06:00 Carbon Dioxide 25 mmol/L (21-32) 08/12/18 06:00 Anion Gap 7 MMOL/L (8-16) L 08/12/18 06:00 BUN 9 mg/dL (7-18) 08/12/18 06:00 Creatinine 0.5 mg/dL (0.55-1.3) L 08/12/18 06:00 Creat Clearance w eGFR 142.09 (>60) 08/12/18 06:00 POC Glucometer 308 UNITS (80-120) 08/13/18 05:33 Random Glucose 294 mg/dL (74-106) H 08/12/18 06:00 Hemoglobin A1c % 10.2 % (4.2-6.3) H 08/10/18 06:30 Calcium 7.9 mg/dL (8.5-10.1) L 08/12/18 06:00 Phosphorus 3.2 mg/dL (2.5-4.9) 08/10/18 06:30 Magnesium 2.0 mg/dL (1.8-2.4) 08/10/18 06:30 Total Bilirubin 0.4 mg/dL (0.2-1) 08/12/18 06:00 AST 9 U/L (15-37) L 08/12/18 06:00 ALT 15 U/L (13-61) 08/12/18 06:00 Alkaline Phosphatase 69 U/L (45-117) 08/12/18 06:00 Creatine Kinase 93 U/L (26-192) 08/09/18 19:40 Troponin I < 0.02 ng/ml (0.00-0.05) 08/09/18 19:40 Total Protein 6.2 g/dl (6.4-8.2) L 08/12/18 06:00 Albumin 2.7 g/dl (3.4-5.0) L 08/12/18 06:00 TSH 1.26 uIU/ml (0.358-3.74) 08/10/18 06:30 Serum , Qual Negative 08/09/18 19:40 Urine Color Yellow 08/09/18 19:13 Urine Appearance Clear 08/09/18 19:13 Urine pH 5.5 (5.0-8.0) 08/09/18 19:[address] [place] 1.045 (1.010-1.035) H 08/09/18 19:13 Urine Protein Negative (NEGATIVE) 08/09/18 19:13 Urine Glucose (UA) >1000 (NEGATIVE) 08/09/18 19:13 Urine Ketones 40 mg/dl (NEGATIVE) 08/09/18 19:13 Urine Blood Trace (NEGATIVE) 08/09/18 19:13 Urine Nitrite Negative (NEGATIVE) 08/09/18 19:13 Urine Bilirubin Negative (NEGATIVE) 08/09/18 19:13 Urine Urobilinogen 0.2 mg/dL (0.2-1.0) 08/09/18 19:13 Ur Leukocyte Esterase Negative (NEGATIVE) 08/09/18 19:13 Acetone, Qual Positive small 1+ (NEGATIVE) H 08/09/18 19:40 Vital Signs Temp 98.4 F 08/13/18 10:00 Pulse 75 08/13/18 10:00 Resp 20 08/13/18 10:00 BP 123/61 08/13/18 10:00 Pulse Ox 99 08/13/18 09:00 Intake & Output 08/12/18 08/12/18 08/13/18 11:59 23:59 11:59 Intake Total 520 1700 100 Balance 520 1700 100 Intake: IV 420 300 0 Normal Saline - 1,000 ml 420 300 0 @ 60 mls/hr IV ASDIR LENA Rx#:[id number] Oral 100 1400 100 Other: Voiding Method Toilet Toilet Toilet # Unmeasured Voids Void 1 2 1 Bowel Movement No Yes No # Bowel Movements 1 Condition: Stable - Instructions Diet, Activity, Other Instructions: Start Basalgar 30 units 2 x day Admelog 3 x day before meals as per sliding scale Metformin 1000 mg 2 x day Referrals: Michael Sethi MD [Primary Care Provider] - Jakob Stacy MD [Staff Physician] - Disposition: HOME - Home Medications Comprehensive Discharge Medication List: Ambulatory Orders Acetaminophen [Tylenol .Regular Strength -] 650 mg PO Q4H PRN tablet 08/12/18 Blood Sugar Diagnostic [Blood Glucose Test Strip] 1 each ACHS #100 strip Blood-Glucose Meter [Blood Glucose Monitoring] 1 each ACHS #1 kit 08/12/18 Gabapentin [Neurontin] 600 mg PO TID #90 tablet 08/12/18 Insulin Detemir [Levemir Flextouch] 30 unit SQ BID #1 insuln.pen 08/12/18 Insulin Lispro [Admelog] 100 unit SQ AC #1 vial 08/12/18 Insulin Lispro [Humalog Kwikpen U-100] 100 unit SQ AC #1 insuln.pen 08/12/18 Lancets [Lancets Ultra Thin] 1 each ACHS #100 each 08/12/18 Pen Needle, Diabetic [Pen Needle] 1 each ACHS #200 dis.needle 08/12/18 Syringe and Needle,Insulin,1Ml [Insulin Syringe] 1 each TID PRN #100 disp.syrin 08/12/18 metFORMIN HCL [Glucophage -] 1,000 mg PO BID@0700,1630 #120 tablet 08/12/18
[2018-08-13 13:07] VITALS: BP 156/93; PULSE 100
== END 2018-08-13 14:51 | disposition home or self-care (01) | DRG 420 ==
LOC: JER 18:36 → JERBED 23:49 → J7W 08-10 17:20 → OBSVTOIN 08-12 07:33
PROVIDERS: ADMIT Family Medicine; ATTEND Family Medicine
DX: E11.65 Type 2 diabetes mellitus with hyperglycemia (principal); H53.8 Other visual disturbances; E66.01 Morbid (severe) obesity due to excess calories; Z68.45 Body mass index [BMI] 70 or greater, adult; D64.9 Anemia, unspecified; I89.0 Lymphedema, not elsewhere classified; E04.9 Nontoxic goiter, unspecified; R16.2 Hepatomegaly with splenomegaly, not elsewhere classified; F41.8 Other specified anxiety disorders; Z86.718 Personal history of other venous thrombosis and embolism; Z86.711 Personal history of pulmonary embolism
CPT/HCPCS: 36415; 71045-TC-FY; 80053; 81003; 82009; 82533; 82550; 82803; 82962; 83036; 83735; 84100; 84443; 84484; 84703; 85025; 85027; 93005; 93010; 99285-25; G0378; J1644; J7030; J8540

== ENCOUNTER 2019-01-17 23:20 | Emergency (ER) | payer OTHER ==
[2019-01-17 23:45] VITALS: BMI 54.6
--- NOTE | 2019-01-18 00:49 | PDOC ---
History of Present Illness <Faith Scanlon - Last Filed: 01/18/19 03:57> - History of Present Illness Initial Comments: 01/18/19 02:10 33f with pmh of morbid obesity and diabetes presenting with abdominal pain for the past 5 hours, on and off, cramping. Never had that kind of pain before. The pain is midline, above the abdomen. Denies fever, n/v/d/ dysuria, diarrhea, constipation. No change in medication. <Shane Small - Last Filed: 01/18/19 05:11> - General Chief Complaint: Pain, Acute Stated Complaint: ABDOMINAL PAIN Time Seen by Provider: 01/18/19 00:36 Past History <Faith Scanlon - Last Filed: 01/18/19 03:57> - Past Medical History Anemia: Yes (since childhood) Asthma: No Cancer: No Cardiac Disorders: No CVA: No COPD: No CHF: No Dementia: No Diabetes: No GI Disorders: No Disorders: No HTN: No (lymphaedema) Hypercholesterolemia: No Kidney Stones: No Liver Disease: No Seizures: No Thyroid Disease: No - Surgical History Abdominal Surgery: Yes (periumbilical hernia repair 01/09) - Immunization History Immunization Up to Date: Yes - Suicide/Smoking/Psychosocial Hx Smoking Status: No Smoking History: Never smoked Have you smoked in the past 12 months: No Number of Cigarettes Smoked Daily: 2 Information on smoking cessation initiated: No Hx Alcohol Use: No Drug/Substance Use Hx: No Substance Use Type: None Hx Substance Use Treatment: No <Shane Small - Last Filed: 01/18/19 05:11> - Past Medical History Allergies/Adverse Reactions: Allergies Allergy/AdvReac Type Severity Reaction Status Date / Time No Known Allergies Allergy Verified 01/17/19 23:42 Home Medications: Ambulatory Orders Acetaminophen [Tylenol .Regular Strength -] 650 mg PO Q4H PRN tablet 08/12/18 Blood Sugar Diagnostic [Blood Glucose Test Strip] 1 each ACHS #100 strip Blood-Glucose Meter [Blood Glucose Monitoring] 1 each ACHS #1 kit 08/12/18 Gabapentin [Neurontin] 600 mg PO TID #90 tablet 08/12/18 Insulin Detemir [Levemir Flextouch] 30 unit SQ BID #1 insuln.pen 08/12/18 Lancets [Lancets Ultra Thin] 1 each ACHS #100 each 08/12/18 Pen Needle, Diabetic [Pen Needle] 1 each ACHS #200 dis.needle 08/12/18 Syringe and Needle,Insulin,1Ml [Insulin Syringe] 1 each MC TID PRN #100 disp.syrin 08/12/18 metFORMIN HCL [Glucophage -] 1,000 mg PO BID@0700,1630 #120 tablet 08/12/18 Acetaminophen W/ Codeine #3 [Tylenol # 3 -] 1 tab PO TID PRN 12/09/18 Ergocalciferol (Vitamin D2) [Vitamin D2] 50,000 unit PO Q7D 12/09/18 Review of Systems - Review of Systems Able to Perform ROS?: Yes Is the patient limited Greek proficient: No Constitutional: No: Symptoms Reported HEENTM: No: Symptoms Reported Respiratory: No: Symptoms reported Cardiac (ROS): No: Symptoms Reported ABD/GI: Yes: See HPI : No: Symptoms Reported Musculoskeletal: No: Symptoms Reported Integumentary: No: Symptoms Reported Neurological: No: Symptoms reported All Other Systems: Reviewed and Negative <Shane Small - Last Filed: 01/18/19 05:11> *Physical Exam - Vital Signs Last Vital Signs Temp Pulse Resp BP Pulse Ox 98.2 F 99 H 20 164/81 99 01/17/19 23:42 01/17/19 23:42 01/17/19 23:42 01/17/19 23:42 01/17/19 23:42 <Faith Scanlon - Last Filed: 01/18/19 03:57> - Vital Signs Last Vital Signs Temp Pulse Resp BP Pulse Ox 98.2 F 99 H 20 164/81 99 01/17/19 23:42 01/17/19 23:42 01/17/19 23:42 01/17/19 23:42 01/17/19 23:42 - Physical Exam General Appearance: Yes: Nourished, Appropriately Dressed. No: Apparent Distress HEENT: positive: EOMI, BOUCHRA, Normal ENT Inspection Respiratory/Chest: positive: Lungs Clear, Normal Breath Sounds. negative: Chest Tender, Respiratory Distress Cardiovascular: positive: Regular Rhythm, Regular Rate, S1, S2 Gastrointestinal/Abdominal: positive: Normal Bowel Sounds, Tender, Soft, Protuberent. negative: Flat Extremity: positive: Normal Capillary Refill, Normal Inspection, Normal Range of Motion Integumentary: positive: Normal Color, Dry, Warm Neurologic: positive: Fully Oriented, Alert, Normal Mood/Affect, Normal Response , Motor Strength 5/5 <Shane Small - Last Filed: 01/18/19 05:11> ED Treatment Course - LABORATORY CBC & Chemistry Diagram: 01/18/19 01:10 01/18/19 01:10 - ADDITIONAL ORDERS Additional order review: Laboratory Results 01/18/19 01/18/19 01:10 01:10 Sodium 138 Potassium 4.7 Chloride 102 Carbon Dioxide 29 Anion Gap 7 L BUN 15.1 Creatinine 0.7 Est GFR (CKD-EPI)AfAm 131.02 Est GFR (CKD-EPI)NonAf 113.04 Random Glucose 115 H Calcium 9.4 Total Bilirubin 0.5 AST 42 H ALT 23 Alkaline Phosphatase 67 Total Protein 7.4 Albumin 3.3 L Serum , Qual Negative 01/18/19 01:10 RBC 4.65 MCV 80.5 MCHC 32.1 RDW 17.7 H MPV 10.5 Neutrophils % 80.9 Lymphocytes % 14.1 D Monocytes % 3.3 L Eosinophils % 0.6 Basophils % 1.1 D <Faith Scanlon - Last Filed: 01/18/19 03:57> - LABORATORY CBC & Chemistry Diagram: 01/18/19 01:10 01/18/19 01:10 <Shane Small - Last Filed: 01/18/19 05:11> Medical Decision Making - Medical Decision Making 01/18/19 05:10 33f with pmh of morbid obesity and diabetes presenting with abdominal pain for the past 5 hours, on and off, cramping. Patient is relatively comfortable. Will get test, creatine level and then order Ct abdomen pelvis with IV contrast. CT read: Cirrhosis and mild splenomegaly without ascites. Moderate sized fat-containing ventral hernia with mild abdominal wall subcutaneous edema Ok to follow up with GI outpatient. <Shane Small - Last Filed: 01/18/19 05:11> *DC/Admit/Observation/Transfer - Discharge Dispostion Decision to Admit order: No <Faith Scanlon - Last Filed: 01/18/19 03:57> <Shane Small - Last Filed: 01/18/19 05:11> Diagnosis at time of Disposition: Fatty hernia of linea alba, Splenomegaly, Cirrhosis - Discharge Dispostion Disposition: HOME Condition at time of disposition: Stable - Referrals Referrals: Kelvin Carroll MD [Staff Physician] - Regine Gray MD [Staff Physician] - Silverio Miller MD [Staff Physician] - - Patient Instructions Printed Discharge Instructions: Abdominal Hernia
--- NOTE | 2019-01-18 00:50 | PDOC ---
Attending Attestation - Resident Resident Name: Shane Small - ED Attending Attestation I have performed the following: I have examined & evaluated the patient, The case was reviewed & discussed with the resident, I agree w/resident's findings & plan - HPI HPI: 01/18/19 02:14 Pt is morbidly obese 192kg and she comes with a sharp pain around her umbilicus , that she has never had in the past. She had a ventral or umbilical hernia repair done in the past, and it is unclear if the pain reflects damage to the hernia mesh. - Physicial Exam PE: 01/18/19 02:16 Agree with resident exam. Pt has mid abd discomfort. Pt is afebrile. - Medical Decision Making 01/18/19 02:17 SHe has normal labs and she will be sent for a CT scan to r/o intraabdominal pathology. 01/18/19 03:57 Patient Name: WILBER RONDON THIS IS A PRELIMINARY REPORT FROM [facility] DATE OF SERVICE: 2019-01-18 02:19:58 IMAGES: [id number] EXAM: ABDOMEN \T\ PELVIS CT WITH CONTR HISTORY: Abdominal pain COMPARISON: None. FINDINGS: Lung bases are clear. The visualized cardiac chambers are normal size and configuration. Liver is cirrhotic. Spleen is mildly enlarged at 16.7 x 14.3 cm. No ascites. Normal gallbladder, pancreas, adrenal glands and kidneys. The stomach and abdominal small and large bowel are normal. There is no aortic aneurysm. There is no significant retroperitoneal lymphadenopathy. There is a moderate sized fat-containing ventral hernia with mild abdominal wall edema. The pelvic small and large bowel are normal. The appendix is normal. The uterus and adnexal structures are normal. Urinary bladder is unremarkable. There is no pelvic free fluid. No discrete pelvic lymphadenopathy is identified. IMPRESSION: Cirrhosis and mild splenomegaly without ascites. Moderate sized fat-containing ventral hernia with mild abdominal wall subcutaneous edema 01/18/19 04:06 Labs normal and pt will be sent home with outpatient gen surg and medical clinic
[2019-01-18 01:30] LABS: BASO % 1.1 % (0-2.0); EOS % 0.6 % (0-4.5); HEMATOCRIT 37.5 % (32.4-45.2); LYMPH % 14.1 % (8-40); MCH 25.9 pg (25.7-33.7); MCHC 32.1 g/dl (32.0-36.0); MEAN CELL VOLUME 80.5 fl (80-96); MEAN PLT VOLUME 10.5 fl (7.5-11.1); MONO % 3.3 % (3.8-10.2); NEUT % 80.9 % (42.8-82.8); PLATELET COUNT 163 K/MM3 (134-434); RBC 4.65 M/mm3 (3.60-5.2); RDW 17.7 % (11.6-15.6); WHITE BLOOD COUNT 9.3 K/mm3 (4.0-10.0)
[2019-01-18 01:59] LABS: ALBUMIN 3.3 g/dl (3.4-5.0); BILIRUBIN,TOTAL 0.5 mg/dL (0.2-1); BLOOD UREA NITROGEN 15.1 mg/dL (7-18); CALCIUM 9.4 mg/dL (8.5-10.1); CREATININE 0.7 mg/dL (0.55-1.3); POTASSIUM 4.7 mmol/L (3.5-5.1); TOT PROT 7.4 g/dl (6.4-8.2)
[2019-01-18 04:08] LABS: URINE APPEARANCE CLEAR; URINE BILIRUBIN NEGATIVE (NEGATIVE); URINE COLOR YELLOW; URINE GLUCOSE (UA) NEGATIVE (NEGATIVE); URINE KETONE NEGATIVE (NEGATIVE); URINE LEUK ESTERASE NEGATIVE (NEGATIVE); URINE NITRITE NEGATIVE (NEGATIVE); URINE PROTEIN NEGATIVE (NEGATIVE); URINE UROBILINOGEN 0.2 mg/dL (0.2-1.0)
[2019-01-18 04:12] VITALS: BP 121/70; PULSE 80; TEMP 98
== END 2019-01-18 04:15 | disposition home or self-care (01) ==
LOC: JER 23:20
DX: K43.9 Ventral hernia without obstruction or gangrene (principal); K74.69 Other cirrhosis of liver; R16.1 Splenomegaly, not elsewhere classified; E66.01 Morbid (severe) obesity due to excess calories; Z68.43 Body mass index [BMI] 50.0-59.9, adult; E10.9 Type 1 diabetes mellitus without complications; Z79.4 Long term (current) use of insulin
CPT/HCPCS: 36415; 74177-TC; 80053; 81003; 84703; 85025; 87086; 99283-25

== ENCOUNTER 2019-03-18 22:21 | Emergency (ER) | payer OTHER ==
[2019-03-18 22:27] VITALS: TEMP 99; BMI 52.7
--- NOTE | 2019-03-18 23:45 | PDOC ---
History of Present Illness - General Chief Complaint: Pain Stated Complaint: ABD PAIN Time Seen by Provider: 03/18/19 23:04 History Source: Patient Exam Limitations: No Limitations Past History - Past Medical History Allergies/Adverse Reactions: Allergies Allergy/AdvReac Type Severity Reaction Status Date / Time No Known Allergies Allergy Verified 03/18/19 22:27 Home Medications: Ambulatory Orders Acetaminophen [Tylenol .Regular Strength -] 650 mg PO Q4H PRN tablet 08/12/18 Blood Sugar Diagnostic [Blood Glucose Test Strip] 1 each ACHS #100 strip Blood-Glucose Meter [Blood Glucose Monitoring] 1 each ACHS #1 kit 08/12/18 Gabapentin [Neurontin] 600 mg PO TID #90 tablet 08/12/18 Insulin Detemir [Levemir Flextouch] 30 unit SQ BID #1 insuln.pen 08/12/18 Lancets [Lancets Ultra Thin] 1 each ACHS #100 each 08/12/18 Pen Needle, Diabetic [Pen Needle] 1 each ACHS #200 dis.needle 08/12/18 Syringe and Needle,Insulin,1Ml [Insulin Syringe] 1 each MC TID PRN #100 disp.syrin 08/12/18 metFORMIN HCL [Glucophage -] 1,000 mg PO BID@0700,1630 #120 tablet 08/12/18 Acetaminophen W/ Codeine #3 [Tylenol # 3 -] 1 tab PO TID PRN 12/09/18 Ergocalciferol (Vitamin D2) [Vitamin D2] 50,000 unit PO Q7D 12/09/18 Anemia: Yes (since childhood) Asthma: No Cancer: No Cardiac Disorders: No CVA: No COPD: No CHF: No Dementia: No Diabetes: Yes GI Disorders: No Disorders: No HTN: No (lymphaedema) Hypercholesterolemia: No Kidney Stones: No Liver Disease: No Seizures: No Thyroid Disease: No Other medical history: DVT - Surgical History Abdominal Surgery: Yes (periumbilical hernia repair 01/09) - Immunization History Immunization Up to Date: Yes - Psycho Social/Smoking Cessation Hx Smoking Status: No Smoking History: Never smoked Have you smoked in the past 12 months: No Number of Cigarettes Smoked Daily: 2 Hx Alcohol Use: No Drug/Substance Use Hx: No Substance Use Type: None Hx Substance Use Treatment: No Review of Systems - Review of Systems Able to Perform ROS?: Yes Is the patient limited Hebrew proficient: No *Physical Exam - Vital Signs Last Vital Signs Temp Pulse Resp BP Pulse Ox 99.0 F 114 H 20 139/83 94 L 03/18/19 22:24 03/18/19 22:24 03/18/19 22:24 03/18/19 22:24 03/18/19 22:24 ED Treatment Course - LABORATORY CBC & Chemistry Diagram: 03/19/19 00:00 03/19/19 00:00 Medical Decision Making - Medical Decision Making 03/18/19 23:41 HPI: 33F PMH NIDDM, morbid obesity c/o 3 days of on/off right flank pain with nausea and loss of appetite. States pain acutely worsened yesterday to 02/05 but was relieved w/ urination. Still endorses colicky pain but not as intense as prior day's episode; 8/10 at most. Denies f/c, inability to tolerate PO, cp/sob, dysuria/frequency/hematuria, no vaginal discharge, itching, or abnormal bleeding.. Hernia repair 2014. No h/o renal stones. LMP 01/21 irregular; not sexually active, no concerns for STI/ PMH - DM, peripheral neuropathy, chronic back pain. h/o DVT+PE no longer on AC per PCP. PCP - Dr. Navdeep MUELLER ROS: CONSTITUTIONAL: Denies F / C HEENT: Denies headache, lightheadedness, dizziness RESP: Denies SOB, cough, orthopnea, PIERSON CARD: Denies chest pain, palpitations GI: Endorses right flank pain. Endorses mild/occasional nausea and decreased appetite. Denies V / D, constipation, bloody stool, inability to tolerate PO : Denies dysuria, hematuria, frequency. No vaginal discharge, bleeding, itch SKIN: Denies rashes PE: GEN: NAD, morbidly obese. AAOx3 HEENT: NC/AT, EOMI, PERRLA. No facial asymmetry. Moist mucous membranes, poor dentition. Normal voice. Supple neck w/ FROM. CV: Quiet. S1/S2, RRR, no m/r/g LUNG: CTAB, no wheezes, crackles, rales, rhonchi. GI: protuberant, soft, ndnt, +BS, no guarding, no rebound. Neg CVAT b/l. BACK: no obvious deformities or step offs. no midline ttp. EXTREMITIES: No obvious deformities of all extremities. SKIN: warm, dry, normal turgor. no rashes on inspection. PSYCH: normal mood and affect NEURO: Moving all extremities well. MDM: 33F c/o 3 days on/off right flank pain. At its worst yesterday, relieved after urinating. Afebrile, nontender exam. - CBC, CMP, - UA - Zofran, Tylenol, Fluids 03/19/19 00:28 UA neg 03/19/19 01:16 labs reviewed DC home w/ PCP and Bariatric Surgery f/u 03/19/19 01:38 rpt VS 110/67 HR 91 RR 14 SaO2 97% DC home as above Discharge - Discharge Information Problems reviewed: Yes Clinical Impression/Diagnosis: Flank pain Condition: Stable Disposition: HOME - Admission No - Follow up/Referral Referrals: Michael Sethi MD [Primary Care Provider] - Silverio Miller MD [Staff Physician] - - Patient Discharge Instructions Patient Printed Discharge Instructions: DI for Abdominal Pain-Adult, DI for Flank Pain Additional Instructions: Drink plenty of fluids. Tylenol or Motrin can be used per instructions on the bottle for pain. Follow up with your primary care doctor in the next 3-5 days regarding this visit. We are referring you to Bariatric surgeon, Dr. Miller. Please schedule an appointment with his office. IMMEDIATELY return to the Emergency Department if you experience worsening pain , inability to eat or drink, vomiting, or if you develop any concerning symptoms. - Post Discharge Activity
[2019-03-18] MEDS ORDERED: LACTATED RINGERS SOLUTION 1000 ML INFUS.BAG IV ONE (23:48)
[2019-03-18] MEDS ORDERED: ONDANSETRON 4 MG/2 ML VIAL IVPUSH ONE (23:48)
[2019-03-18] MEDS ORDERED: ACETAMINOPHEN 1000 MG/100 ML VIAL (NON FORMULARY) IVPB ONE ×2 (23:48→23:51)
[2019-03-19] MEDS ORDERED: ACETAMINOPHEN INJECTION 100 ML IVPB ONE (00:08)
[2019-03-19] MEDS ORDERED: ONDANSETRON 4 MG/2 ML VIAL ONE (00:08)
--- NOTE | 2019-03-19 00:09 | PDOC ---
Documentation entered by Keiry Rao SCRIBE, acting as scribe for Bea Boggs DO. Bea Boggs DO: This documentation has been prepared by the Jalen freeman Xhesika, SCRIBE, under my direction and personally reviewed by me in its entirety. I confirm that the documentation accurately reflects all work, treatment, procedures, and medical decision making performed by me. Attending Attestation - Resident Resident Name: NnamdiAnil - ED Attending Attestation I have performed the following: I have examined & evaluated the patient, The case was reviewed & discussed with the resident, I agree w/resident's findings & plan, Exceptions are as noted - HPI HPI: 03/18/19 23:51 The patient is a 33 year old morbidly obese female with a significant PMH of NIDDM, DVT/PE who presents to the emergency department for 3 days R flank pain. Pt notes her pain is intermittent, associated with nausea and loss of appetite. Pt reports that yesterday her pain was radiating to her groin, 10/10 in severity, and was relieved after urinating. Denies previous history of kidney stones or gallstones. Pt reports Irregular periods (LMP- 01/11/19). Patient denies chest pain, shortness of breath, headache. Denies fever, chills, cough, vomiting, diarrhea and constipation. Denies dysuria, frequency, urgency and hematuria. Allergies: NKDA Past surgical history: periumbilical hernia repair 01/09 Social history: None reported PCP: Dr. Sethi - Physicial Exam PE: 03/19/19 00:09 GENERAL: Awake, alert, and fully oriented, in no acute distress LUNGS: Breath sounds equal, clear to auscultation bilaterally. No wheezes, and no crackles HEART:+tachy. Regular rate and rhythm, normal S1 and S2, no murmurs, rubs or gallops ABDOMEN: +obese. Soft, nontender, normoactive bowel sounds. No guarding, no rebound. No masses. No CVA tenderness. EXTREMITIES: Normal range of motion, no edema. No clubbing or cyanosis. No cords, erythema, or tenderness NEUROLOGICAL: Cranial nerves II through XII grossly intact. Normal speech, normal gait SKIN: Warm, Dry, normal turgor, no rashes or lesions noted. - Medical Decision Making 03/19/19 00:07 I, Dr. Bea Boggs, DO, attest that this document has been prepared under my direction and personally reviewed by me in its entirety. I further attest, that it accurately reflects all work, treatment, procedures and medical decision -making performed by me. a/p: 33yo female with R flank pain -states she felt pelvic pressure yesterday - urinated and the pressure resolved. No v/d -no f/c -pt is morbidly obese -pt tolerated po today -no dysuria or hematuria -no vaginal complaints -abd is soft and nontender/no cva ttp -will send labs, ua and monitor -tylenol and ivf hydration 03/19/19 00:55 no acute findings on labs 03/19/19 01:08 pt denies pain at this time discussed labs in detail discussed follow up with her PMD discussed wt loss and following up with gastric bypass sx answered all questions - stable for dc to home after repeat vitals
[2019-03-19 00:27] LABS: URINE APPEARANCE CLEAR; URINE BILIRUBIN NEGATIVE (NEGATIVE); URINE COLOR YELLOW; URINE GLUCOSE (UA) NEGATIVE (NEGATIVE); URINE KETONE NEGATIVE (NEGATIVE); URINE LEUK ESTERASE NEGATIVE (NEGATIVE); URINE NITRITE NEGATIVE (NEGATIVE); URINE PROTEIN NEGATIVE (NEGATIVE); URINE UROBILINOGEN 0.2 mg/dL (0.2-1.0)
[2019-03-19 00:28] LABS: BASO % 0.2 % (0-2.0); EOS % 0.6 % (0-4.5); HEMATOCRIT 35.8 % (32.4-45.2); HEMOGLOBIN 11.3 GM/dL (10.7-15.3); LYMPH % 20.5 % (8-40); MCHC 31.4 g/dl (32.0-36.0); MEAN CELL VOLUME 82.9 fl (80-96); MEAN PLT VOLUME 9.9 fl (7.5-11.1); MONO % 4.3 % (3.8-10.2); NEUT % 74.4 % (42.8-82.8); PLATELET COUNT 116 K/MM3 (134-434); RBC 4.33 M/mm3 (3.60-5.2); RDW 16.5 % (11.6-15.6); WHITE BLOOD COUNT 7.7 K/mm3 (4.0-10.0)
[2019-03-19 00:44] LABS: BILIRUBIN,TOTAL 0.3 mg/dL (0.2-1); CALCIUM 8.7 mg/dL (8.5-10.1); CREATININE 0.9 mg/dL (0.55-1.3); POTASSIUM 3.9 mmol/L (3.5-5.1); TOT PROT 6.8 g/dl (6.4-8.2)
[2019-03-19 01:44] VITALS: BP 110/63; PULSE 93
== END 2019-03-19 01:45 | disposition home or self-care (01) ==
LOC: JER 22:21
PROC: 3E0F7GC Introduction of Other Therapeutic Substance into Respiratory Tract, Via Natural or Artificial Opening (ICD-10-PCS; principal; 2019-03-18)
PROC: 3E033NZ Introduction of Analgesics, Hypnotics, Sedatives into Peripheral Vein, Percutaneous Approach (ICD-10-PCS; 2019-03-18)
PROC: 3E033GC Introduction of Other Therapeutic Substance into Peripheral Vein, Percutaneous Approach (ICD-10-PCS; 2019-03-18)
PROC: 3E033NZ Introduction of Analgesics, Hypnotics, Sedatives into Peripheral Vein, Percutaneous Approach (ICD-10-PCS; 2019-03-18)
PROC: 3E0F7GC Introduction of Other Therapeutic Substance into Respiratory Tract, Via Natural or Artificial Opening (ICD-10-PCS; 2019-03-18)
PROC: 3E033GC Introduction of Other Therapeutic Substance into Peripheral Vein, Percutaneous Approach (ICD-10-PCS; 2019-03-18)
DX: R10.31 Right lower quadrant pain (principal); Z98.84 Bariatric surgery status; E66.01 Morbid (severe) obesity due to excess calories; Z68.43 Body mass index [BMI] 50.0-59.9, adult; E11.9 Type 2 diabetes mellitus without complications; G62.9 Polyneuropathy, unspecified; G89.29 Other chronic pain; Z86.718 Personal history of other venous thrombosis and embolism
CPT/HCPCS: 36415; 80053; 81003; 84703; 85025; 99283-25; J0131

== ENCOUNTER 2020-03-20 15:05 | Emergency (ER) | payer OTHER ==
[2020-03-20 15:10] VITALS: BP 158/97; PULSE 107; TEMP 97.8; BMI 64.6
[2020-03-20] MEDS ORDERED: SODIUM CHLORIDE 1,000 ML IV STA ×3 (15:29→18:57)
[2020-03-20 16:41] LABS: BASO % 0.9 % (0-2.0); EOS % 0.7 % (0-4.5); HEMATOCRIT 39.2 % (32.4-45.2); HEMOGLOBIN 12.5 GM/dL (10.7-15.3); LYMPH % 20.9 % (8-40); MEAN CELL VOLUME 87.5 fl (80-96); MEAN PLT VOLUME 11.2 fl (7.5-11.1); MONO % 3.6 % (3.8-10.2); NEUT % 73.9 % (42.8-82.8); PLATELET COUNT 96 K/MM3 (134-434); RBC 4.48 M/mm3 (3.60-5.2); RDW 14.8 % (11.6-15.6); WHITE BLOOD COUNT 6.3 K/mm3 (4.0-10.0)
[2020-03-20 16:58] LABS: CHLORIDE 94 mmol/L (98-107); POTASSIUM 4.4 mmol/L (3.5-5.1); SODIUM 133 mmol/L (136-145)
[2020-03-20 16:59] LABS: VENOUS BASE EXCESS 3.3 mmol/L (-2-2); VENOUS PCO2 63.2 mmHg (38-52); VENOUS PH 7.317 (7.310-7.410)
[2020-03-20 17:00] LABS: CALCIUM 9.8 mg/dL (8.5-10.1)
[2020-03-20 17:01] LABS: ALBUMIN 3.7 g/dl (3.4-5.0); ANION GAP 7 MMOL/L (8-16); BLOOD UREA NITROGEN 10.7 mg/dL (7-18); CO2 33 mmol/L (21-32); MAGNESIUM 1.8 mg/dL (1.8-2.4)
[2020-03-20 17:04] LABS: CREATININE 0.8 mg/dL (0.55-1.3); PHOSPHOROUS 5.1 mg/dL (2.5-4.9); SGOT/AST 43 U/L (15-37); SGPT/ALT 31 U/L (13-61)
[2020-03-20 17:05] LABS: BILIRUBIN,TOTAL 0.8 mg/dL (0.2-1); TOT PROT 8.1 g/dl (6.4-8.2)
[2020-03-20 17:06] LABS: ALK PHOS 83 U/L (45-117)
[2020-03-20 17:15] LABS: GLUCOSE,RANDOM 418 mg/dL (74-106)
[2020-03-20] MEDS ORDERED: INSULIN REGULAR HUMAN 100 UNITS/ML *VIAL SQ ONE (17:55)
[2020-03-20 19:01] LABS: EPI CELLS 26 /uL (0-25.1); HYALINE CASTS 1 /uL (0-3.1); URINE APPEARANCE CLEAR; URINE BACTERIA >9,000 /uL (0-1359); URINE BILIRUBIN NEGATIVE (NEGATIVE); URINE COLOR YELLOW; URINE GLUCOSE (UA) 3+ (NEGATIVE); URINE KETONE TRACE (NEGATIVE); URINE LEUK ESTERASE NEGATIVE (NEGATIVE); URINE NITRITE POSITIVE (NEGATIVE); URINE PROTEIN TRACE (NEGATIVE); URINE RBC 16 /uL (0-23.9); URINE UROBILINOGEN 0.2 mg/dL (0.2-1.0); URINE WBC 25 /uL (0-25.8)
[2020-03-20] MEDS ORDERED: CEFTRIAXONE 1,000 MG in DEXTROSE 5%-WATER - 50 ML IVPB ONE (19:02)
[2020-03-20] MEDS ORDERED: CEFTRIAXONE 1 GM/50 ML BAG ONE (19:06)
== END 2020-03-20 19:55 | disposition home or self-care (01) ==
LOC: JER 15:05
PROC: 3E03329 Introduction of Other Anti-infective into Peripheral Vein, Percutaneous Approach (ICD-10-PCS; principal; 2020-03-20)
PROC: 3E0337Z Introduction of Electrolytic and Water Balance Substance into Peripheral Vein, Percutaneous Approach (ICD-10-PCS; 2020-03-20)
PROC: 3E0337Z Introduction of Electrolytic and Water Balance Substance into Peripheral Vein, Percutaneous Approach (ICD-10-PCS; 2020-03-20)
PROC: 3E0337Z Introduction of Electrolytic and Water Balance Substance into Peripheral Vein, Percutaneous Approach (ICD-10-PCS; 2020-03-20)
DX: R73.9 Hyperglycemia, unspecified (principal)
CPT/HCPCS: 36415; 71045-TC-FY; 80053; 81003; 82010; 82550; 82803; 82962; 83605; 83735; 84100; 84484; 84702; 85025; 87086; 87186; 99284-25

== ENCOUNTER 2020-05-03 23:27 | Emergency (ER) | payer OTHER ==
[2020-05-03 23:47] VITALS: BMI 63.3
[2020-05-04] MEDS ORDERED: LACTATED RINGERS SOLUTION 1000 ML INFUS.BAG IV ONE (00:17)
[2020-05-04 00:56] LABS: VENOUS BASE EXCESS 2.7 mmol/L (-2-2); VENOUS O2 SATURATION 35.2 % (70-80); VENOUS PCO2 55.6 mmHg (38-52); VENOUS PH 7.345 (7.310-7.410)
[2020-05-04 00:57] LABS: BASO % 0.9 % (0-2.0); EOS % 0.5 % (0-4.5); HEMATOCRIT 39.5 % (32.4-45.2); HEMOGLOBIN 12.5 GM/dL (10.7-15.3); LYMPH % 19.9 % (8-40); MCH 26.5 pg (25.7-33.7); MCHC 31.8 g/dl (32.0-36.0); MEAN CELL VOLUME 83.4 fl (80-96); MEAN PLT VOLUME 11.6 fl (7.5-11.1); MONO % 5.4 % (3.8-10.2); NEUT % 73.3 % (42.8-82.8); PLATELET COUNT 126 K/MM3 (134-434); RBC 4.73 M/mm3 (3.60-5.2); RDW 14.8 % (11.6-15.6); WHITE BLOOD COUNT 6.2 K/mm3 (4.0-10.0)
[2020-05-04 01:38] LABS: POTASSIUM 4.5 mmol/L (3.5-5.1)
[2020-05-04 01:40] LABS: CALCIUM 9.5 mg/dL (8.5-10.1)
[2020-05-04 01:41] LABS: ALBUMIN 3.5 g/dl (3.4-5.0)
[2020-05-04 01:43] LABS: CREATININE 0.8 mg/dL (0.55-1.3)
[2020-05-04 01:45] LABS: BILIRUBIN,TOTAL 0.4 mg/dL (0.2-1); TOT PROT 7.7 g/dl (6.4-8.2)
[2020-05-04] MEDS ORDERED: INSULIN REGULAR HUMAN 100 UNITS/ML *VIAL SQ ONE (02:03)
[2020-05-04 03:43] VITALS: BP 145/90; PULSE 92; TEMP 99.2
== END 2020-05-04 03:59 | disposition home or self-care (01) ==
LOC: JER 23:27
PROC: 3E013VG Introduction of Insulin into Subcutaneous Tissue, Percutaneous Approach (ICD-10-PCS; principal; 2020-05-03)
DX: R73.9 Hyperglycemia, unspecified (principal)
CPT/HCPCS: 36415; 80053; 82010; 82803; 82962; 84703; 85025; 99284-25

== ENCOUNTER 2020-07-21 00:33 | Emergency (ER) | payer OTHER ==
[2020-07-21 01:07] VITALS: BMI 63.3
[2020-07-21 02:48] LABS: VENOUS BASE EXCESS -2.4 mmol/L (-2-2); VENOUS O2 SATURATION 85.5 % (70-80); VENOUS PCO2 40.4 mmHg (38-52); VENOUS PH 7.368 (7.310-7.410)
[2020-07-21 02:56] LABS: BASO % 0.2 % (0-2.0); EOS % 0.7 % (0-4.5); HEMATOCRIT 38.8 % (32.4-45.2); HEMOGLOBIN 12.5 GM/dL (10.7-15.3); LYMPH % 25.5 % (8-40); MCH 27.2 pg (25.7-33.7); MCHC 32.1 g/dl (32.0-36.0); MEAN CELL VOLUME 84.5 fl (80-96); MEAN PLT VOLUME 11.7 fl (7.5-11.1); MONO % 6.2 % (3.8-10.2); NEUT % 67.4 % (42.8-82.8); PLATELET COUNT 83 K/MM3 (134-434); RBC 4.59 M/mm3 (3.60-5.2); RDW 15.4 % (11.6-15.6); WHITE BLOOD COUNT 5.1 K/mm3 (4.0-10.0)
[2020-07-21 03:09] LABS: CHLORIDE 95 mmol/L (98-107); POTASSIUM 3.9 mmol/L (3.5-5.1); SODIUM 131 mmol/L (136-145)
[2020-07-21 03:11] LABS: ALBUMIN 3.3 g/dl (3.4-5.0); ANION GAP 11 MMOL/L (8-16); CALCIUM 8.9 mg/dL (8.5-10.1); CO2 25 mmol/L (21-32)
[2020-07-21 03:14] LABS: CREATININE 0.9 mg/dL (0.55-1.3); SGOT/AST 13 U/L (15-37); SGPT/ALT 16 U/L (13-61)
[2020-07-21 03:15] LABS: BILIRUBIN,TOTAL 0.7 mg/dL (0.2-1)
[2020-07-21 03:16] LABS: TOT PROT 7.1 g/dl (6.4-8.2)
[2020-07-21 03:17] LABS: ALK PHOS 102 U/L (45-117)
[2020-07-21 03:22] LABS: GLUCOSE,RANDOM 530 mg/dL (74-106)
[2020-07-21] MEDS ORDERED: SODIUM CHLORIDE 1,000 ML IV STA ×2 (04:19→05:11)
[2020-07-21] MEDS ORDERED: VANCOMYCIN 1 GM in D5W (PRE-DOCKED) 1,000 MG/250 ML IVPB ONE (05:13)
[2020-07-21 05:17] LABS: EPI CELLS 11 /uL (0-25.1); HYALINE CASTS 1 /uL (0-3.1); URINE APPEARANCE CLEAR; URINE BACTERIA 711 /uL (0-1359); URINE BILIRUBIN NEGATIVE (NEGATIVE); URINE COLOR YELLOW; URINE GLUCOSE (UA) 3+ (NEGATIVE); URINE KETONE 4+ (NEGATIVE); URINE LEUK ESTERASE NEGATIVE (NEGATIVE); URINE NITRITE NEGATIVE (NEGATIVE); URINE PROTEIN NEGATIVE (NEGATIVE); URINE RBC 23 /uL (0-23.9); URINE UROBILINOGEN 0.2 mg/dL (0.2-1.0)
[2020-07-21] MEDS ORDERED: PIPERACILLIN/TAZOB 4.5 GM 4.5 GM in DEXTROSE 5%-WATER 100 ML IVPB ONE (05:28)
[2020-07-21] MEDS ORDERED: VANCOMYCIN 1 GRAM (PRE-DOCKED) 1,000 MG/250 ML BAG IVPB ONE (05:28)
[2020-07-21] MEDS ORDERED: CLINDAMYCIN 900 MG PREMIX IVPB 900 MG/50 ML BAG IVPB ONE ×2 (05:30→07:06)
[2020-07-21] MEDS ORDERED: INSULIN REGULAR HUMAN 100 UNITS/ML *VIAL SQ ONE (06:01)
[2020-07-21] MEDS ORDERED: INSULIN REGULAR HUMAN 100 UNITS/ML *VIAL ONE (06:05)
[2020-07-21] MEDS ORDERED: PIPERACILLIN/TAZOB 4.5 GM 4.5 GM/100 ML BAG IVPB ONE (06:32)
[2020-07-21 07:01] VITALS: BP 143/83; PULSE 74; TEMP 98.9
== END 2020-07-21 07:15 | disposition short-term general hospital (02) ==
LOC: JER 00:33
PROC: 3E0337Z Introduction of Electrolytic and Water Balance Substance into Peripheral Vein, Percutaneous Approach (ICD-10-PCS; principal; 2020-07-21)
PROC: 3E033GC Introduction of Other Therapeutic Substance into Peripheral Vein, Percutaneous Approach (ICD-10-PCS; principal; 2020-07-21)
PROC: 3E023GC Introduction of Other Therapeutic Substance into Muscle, Percutaneous Approach (ICD-10-PCS; principal; 2020-07-21)
DX: E11.65 Type 2 diabetes mellitus with hyperglycemia (principal); N76.4 Abscess of vulva
CPT/HCPCS: 36415; 80053; 81003; 82010; 82803; 83605; 84702; 85025; 87040; 87070; 87076; 87086; 87186; 87205; 99285-25

== ENCOUNTER 2020-07-25 11:43 | Emergency (ER) | payer OTHER ==
[2020-07-25 11:58] VITALS: TEMP 98.5; BMI 63.3
[2020-07-25] MEDS ORDERED: KETOROLAC TROMETHAMINE 60 MG/2 ML VIAL ONE (13:21)
[2020-07-25] MEDS ORDERED: KETOROLAC TROMETHAMINE 60 MG/2 ML VIAL IM ONE (13:21)
[2020-07-25 14:33] VITALS: BP 130/87; PULSE 89
== END 2020-07-25 14:33 | disposition home or self-care (01) ==
LOC: JER 11:43 → JERFT 11:43
PROC: 3E0233Z Introduction of Anti-inflammatory into Muscle, Percutaneous Approach (ICD-10-PCS; principal; 2020-07-25)
DX: S89.91XA Unspecified injury of right lower leg, initial encounter (principal)
CPT/HCPCS: 73560-TC-RT-FY; 99284-25

== ENCOUNTER 2020-08-10 12:18 | Inpatient (IN) | payer OTHER ==
[2020-08-10] MEDS ORDERED: LACTATED RINGERS SOLUTION 1000 ML INFUS.BAG IV ONE ×2 (12:41→13:27)
[2020-08-10] MEDS ORDERED: INSULIN REGULAR 100 UNITS in SODIUM CHLORIDE 99 ML IVPB SCH (12:45)
[2020-08-10 13:46] LABS: BASO % 0.6 % (0-2.0); EOS % 0.5 % (0-4.5); HEMATOCRIT 40.3 % (32.4-45.2); HEMOGLOBIN 12.9 GM/dL (10.7-15.3); LYMPH % 14.9 % (8-40); MCH 27.4 pg (25.7-33.7); MCHC 32.1 g/dl (32.0-36.0); MEAN CELL VOLUME 85.5 fl (80-96); MEAN PLT VOLUME 11.8 fl (7.5-11.1); MONO % 4.1 % (3.8-10.2); NEUT % 79.9 % (42.8-82.8); PLATELET COUNT 106 K/MM3 (134-434); RBC 4.72 M/mm3 (3.60-5.2); RDW 15.7 % (11.6-15.6); VENOUS BASE EXCESS 4.5 mmol/L (-2-2); VENOUS O2 SATURATION 63.9 % (70-80); VENOUS PCO2 55.1 mmHg (38-52); VENOUS PH 7.371 (7.310-7.410); WHITE BLOOD COUNT 5.4 K/mm3 (4.0-10.0)
[2020-08-10 13:53] LABS: INR 1.06 (0.83-1.09)
[2020-08-10 13:56] LABS: ACTIVATED PTT 27.7 SECONDS (25.2-36.5)
[2020-08-10 14:02] LABS: CHLORIDE 96 mmol/L (98-107); SODIUM 132 mmol/L (136-145)
[2020-08-10 14:03] LABS: ALBUMIN 3.3 g/dl (3.4-5.0)
[2020-08-10 14:04] LABS: CALCIUM 9.3 mg/dL (8.5-10.1)
[2020-08-10 14:05] LABS: ANION GAP 5 MMOL/L (8-16); CO2 31 mmol/L (21-32)
[2020-08-10 14:08] LABS: SGOT/AST 68 U/L (15-37); SGPT/ALT 21 U/L (13-61)
[2020-08-10 14:09] LABS: BILIRUBIN,TOTAL 1.1 mg/dL (0.2-1); TOT PROT 7.4 g/dl (6.4-8.2)
[2020-08-10 14:10] LABS: ALK PHOS 82 U/L (45-117)
[2020-08-10 14:13] LABS: EPI CELLS >36 /uL (0-25.1); HYALINE CASTS 1 /uL (0-3.1); URINE APPEARANCE CLOUDY; URINE BACTERIA 1355 /uL (0-1359); URINE BILIRUBIN NEGATIVE (NEGATIVE); URINE COLOR YELLOW; URINE GLUCOSE (UA) 3+ (NEGATIVE); URINE KETONE NEGATIVE (NEGATIVE); URINE LEUK ESTERASE 1+ (NEGATIVE); URINE NITRITE NEGATIVE (NEGATIVE); URINE PROTEIN NEGATIVE (NEGATIVE); URINE RBC 164 /uL (0-23.9); URINE UROBILINOGEN 0.2 mg/dL (0.2-1.0); URINE WBC 63 /uL (0-25.8)
[2020-08-10 14:22] LABS: GLUCOSE,RANDOM 499 mg/dL (74-106)
[2020-08-10] MEDS ORDERED: SULFAMETHOXAZOLE/TRIMETHOPRIM 800MG/160MG D.S. TABLET PO ONE (14:40)
[2020-08-10] MEDS ORDERED: SULFAMETHOXAZOLE/TRIMETHOPRIM 800MG/160MG D.S. TABLET ONE (14:56)
[2020-08-10 14:57] LABS: YEAST PRESENT (NEGATIVE)
[2020-08-10] MEDS ORDERED: FLUCONAZOLE 50 MG TABLET PO ONE (16:47)
[2020-08-10] MEDS ORDERED: FLUCONAZOLE 150 MG TABLET PO ONE ×2 (17:10→17:15)
[2020-08-10 17:57] LABS: CALCIUM 9.4 mg/dL (8.5-10.1)
[2020-08-10 17:58] LABS: BLOOD UREA NITROGEN 5.6 mg/dL (7-18)
[2020-08-10 18:02] LABS: CREATININE 0.7 mg/dL (0.55-1.3)
[2020-08-10] MEDS: INSULIN SLIDING SCALE (NOVOLOG) 1 VIAL SQ SCH (23:15)
[2020-08-11] MEDS ORDERED: MELATONIN 5 MG TABLETS PO ONE (01:22)
[2020-08-11] MEDS: INSULIN SLIDING SCALE (NOVOLOG) 1 VIAL SQ SCH ×4 (06:16→22:40)
[2020-08-11 07:23] LABS: BASO % 0.3 % (0-2.0); EOS % 1.6 % (0-4.5); HEMATOCRIT 36.6 % (32.4-45.2); HEMOGLOBIN 11.9 GM/dL (10.7-15.3); LYMPH % 24.9 % (8-40); MCH 27.6 pg (25.7-33.7); MCHC 32.5 g/dl (32.0-36.0); MEAN CELL VOLUME 85.1 fl (80-96); MEAN PLT VOLUME 10.9 fl (7.5-11.1); MONO % 5.4 % (3.8-10.2); NEUT % 67.8 % (42.8-82.8); PLATELET COUNT 89 K/MM3 (134-434); RDW 15.7 % (11.6-15.6); WHITE BLOOD COUNT 4.7 K/mm3 (4.0-10.0)
[2020-08-11 07:49] LABS: ALBUMIN 2.8 g/dl (3.4-5.0); BLOOD UREA NITROGEN 8.8 mg/dL (7-18); CALCIUM 8.9 mg/dL (8.5-10.1)
[2020-08-11 07:52] LABS: CREATININE 0.6 mg/dL (0.55-1.3)
[2020-08-11 07:54] LABS: TOT PROT 6.2 g/dl (6.4-8.2)
[2020-08-11] MEDS ORDERED: PT OWN MED DRAWER 7, Y5N ONE (09:43)
[2020-08-11] MEDS ORDERED: cefTRIAXone SODIUM 1 GM VIAL ONE (09:44)
[2020-08-11] MEDS ORDERED: DEXTROSE 5%-WATER - 50 ML IVPB ONE (09:44)
[2020-08-11] MEDS: CEFTRIAXONE 1 GM in DEXTROSE 5%-WATER - 50 ML IVPB SCH (09:48)
[2020-08-11] MEDS: HEPARIN NA (PORCINE) 5,000 UNITS/ML 1ML VIAL SQ SCH ×3 (09:52→21:55)
[2020-08-11] MEDS: ASPIRIN COATED 81 MG TABLET.EC PO SCH (09:52)
[2020-08-11] MEDS: FAMOTIDINE 20 MG TABLET PO SCH (09:53)
[2020-08-11] MEDS: ENALAPRIL MALEATE 5 MG TABLET PO SCH (09:54)
[2020-08-11] MEDS ORDERED: INSULIN (NOVOLOG) ASPART 100 UNITS/ML 10ML VIAL ONE ×2 (11:32→11:35)
[2020-08-11 13:40] VITALS: BMI 58.6
[2020-08-11] MEDS: NYSTATIN 100,000 UNIT/GM TOPICAL CREAM 15 GM TUBE TP SCH ×3 (15:40→21:55)
[2020-08-11] MEDS: GABAPENTIN 400 MG CAPSULE PO SCH ×2 (15:47→21:55)
[2020-08-11] MEDS: traZODone HCL 50 MG TABLET (FP) PO SCH ×2 (21:56→21:58)
[2020-08-11] MEDS ORDERED: INSULIN (LEVEMIR) 100 UNITS/ML UNITS SQ ONE (23:00)
[2020-08-12] MEDS: GABAPENTIN 400 MG CAPSULE PO SCH ×3 (05:27→21:36)
[2020-08-12] MEDS: HEPARIN NA (PORCINE) 5,000 UNITS/ML 1ML VIAL SQ SCH ×3 (05:28→21:40)
[2020-08-12] MEDS: INSULIN SLIDING SCALE (NOVOLOG) 1 VIAL SQ SCH ×5 (06:17→22:18)
[2020-08-12] MEDS ORDERED: DEXTROSE 5%-WATER - 50 ML IVPB ONE (08:38)
[2020-08-12] MEDS ORDERED: cefTRIAXone SODIUM 1 GM VIAL ONE (08:38)
[2020-08-12] MEDS ORDERED: INSULIN (LEVEMIR) 100 UNITS/ML UNITS SQ SCH (10:00)
[2020-08-12] MEDS: CEFTRIAXONE 1 GM in DEXTROSE 5%-WATER - 50 ML IVPB SCH (10:31)
[2020-08-12] MEDS: NYSTATIN 100,000 UNIT/GM TOPICAL CREAM 15 GM TUBE TP SCH ×2 (10:33→21:45)
[2020-08-12] MEDS: ASPIRIN COATED 81 MG TABLET.EC PO SCH (10:33)
[2020-08-12] MEDS: ENALAPRIL MALEATE 5 MG TABLET PO SCH (10:33)
[2020-08-12] MEDS: FAMOTIDINE 20 MG TABLET PO SCH (10:33)
[2020-08-12] MEDS: MULTIVITAMINS (DAILY MVI) TABLET (FP) PO SCH (10:33)
[2020-08-12] MEDS: traMADol HCL 50 MG TABLET PO PRN (15:24)
[2020-08-12] MEDS ORDERED: PT OWN MED DRAWER 7, Y5N ONE (21:31)
[2020-08-12] MEDS: INSULIN (LEVEMIR) 100 UNITS/ML UNITS SQ SCH (21:38)
[2020-08-12] MEDS: traZODone HCL 50 MG TABLET (FP) PO SCH (21:44)
[2020-08-13] MEDS: HEPARIN NA (PORCINE) 5,000 UNITS/ML 1ML VIAL SQ SCH ×2 (06:13→14:34)
[2020-08-13] MEDS: GABAPENTIN 400 MG CAPSULE PO SCH ×2 (06:14→14:34)
[2020-08-13] MEDS: INSULIN SLIDING SCALE (NOVOLOG) 1 VIAL SQ SCH ×3 (06:15→16:29)
[2020-08-13 06:37] VITALS: PULSE 82
[2020-08-13] MEDS ORDERED: DEXTROSE 5%-WATER - 50 ML IVPB ONE (07:19)
[2020-08-13] MEDS ORDERED: cefTRIAXone SODIUM 1 GM VIAL ONE (07:19)
[2020-08-13] MEDS: INSULIN (LEVEMIR) 100 UNITS/ML UNITS SQ SCH (09:06)
[2020-08-13] MEDS: MULTIVITAMINS (DAILY MVI) TABLET (FP) PO SCH (09:07)
[2020-08-13] MEDS: ASPIRIN COATED 81 MG TABLET.EC PO SCH (09:08)
[2020-08-13] MEDS: FAMOTIDINE 20 MG TABLET PO SCH (09:08)
[2020-08-13] MEDS: CEFTRIAXONE 1 GM in DEXTROSE 5%-WATER - 50 ML IVPB SCH (09:08)
[2020-08-13] MEDS: traMADol HCL 50 MG TABLET PO PRN (09:08)
[2020-08-13] MEDS: ENALAPRIL MALEATE 5 MG TABLET PO SCH (09:12)
[2020-08-13] MEDS: NYSTATIN 100,000 UNIT/GM TOPICAL CREAM 15 GM TUBE TP SCH (09:36)
[2020-08-13 14:31] VITALS: BP 114/79; TEMP 98.7
[2020-08-13 16:41] LABS: BASO % 0.4 % (0-2.0); EOS % 1.8 % (0-4.5); HEMATOCRIT 40.6 % (32.4-45.2); HEMOGLOBIN 13.1 GM/dL (10.7-15.3); LYMPH % 25.7 % (8-40); MCH 27.9 pg (25.7-33.7); MCHC 32.3 g/dl (32.0-36.0); MEAN CELL VOLUME 86.2 fl (80-96); MONO % 4.9 % (3.8-10.2); NEUT % 67.2 % (42.8-82.8); PLATELET COUNT 98 K/MM3 (134-434); RBC 4.71 M/mm3 (3.60-5.2); RDW 15.8 % (11.6-15.6)
[2020-08-13 17:01] LABS: ALBUMIN 3.1 g/dl (3.4-5.0); CALCIUM 9.5 mg/dL (8.5-10.1)
[2020-08-13 17:04] LABS: CREATININE 0.8 mg/dL (0.55-1.3)
[2020-08-13 17:06] LABS: BILIRUBIN,TOTAL 0.6 mg/dL (0.2-1)
== END 2020-08-13 18:44 | disposition home or self-care (01) | DRG 420 ==
LOC: JER 12:18 → JERBED 18:12 → J7W 08-11 00:19
PROVIDERS: ADMIT Internal Medicine; ATTEND Family Medicine
DX: E11.65 Type 2 diabetes mellitus with hyperglycemia (principal); E66.01 Morbid (severe) obesity due to excess calories; Z68.43 Body mass index [BMI] 50.0-59.9, adult; D69.6 Thrombocytopenia, unspecified; E87.5 Hyperkalemia; Z79.4 Long term (current) use of insulin; Z86.718 Personal history of other venous thrombosis and embolism; Z86.711 Personal history of pulmonary embolism; E11.40 Type 2 diabetes mellitus with diabetic neuropathy, unspecified; N39.0 Urinary tract infection, site not specified; Z20.822 Contact with and (suspected) exposure to COVID-19; R00.2 Palpitations; I89.0 Lymphedema, not elsewhere classified; F41.9 Anxiety disorder, unspecified; F32.9 Major depressive disorder, single episode, unspecified; D64.9 Anemia, unspecified; E86.0 Dehydration; E86.1 Hypovolemia
CPT/HCPCS: 36415; 80048; 80053; 80074; 81003; 82010; 82607; 82728; 82803; 82962; 83036; 83540; 83550; 84439; 84443; 84703; 85025; 85610; 85730; 87086; 93005; 93010; 93225; 93226; 93970-TC; 99285-25; C9803; J1644; U0003; U0005

== ENCOUNTER 2020-10-13 14:22 | Emergency (ER) | payer OTHER ==
[2020-10-13 14:42] VITALS: BP 123/74; PULSE 76; TEMP 98; BMI 56.7
[2020-10-13] MEDS ORDERED: PANTOPRAZOLE SODIUM 40 MG VIAL IVPB ONE (15:17)
[2020-10-13] MEDS ORDERED: SODIUM CHLORIDE 1,000 ML IV STA (15:17)
[2020-10-13] MEDS ORDERED: ACETAMINOPHEN 1000 MG/100 ML VIAL (NON FORMULARY) IVPB ONE (15:18)
[2020-10-13] MEDS ORDERED: ONDANSETRON *ODT* 4 MG TABLET SL ONE (15:18)
[2020-10-13] MEDS ORDERED: ACETAMINOPHEN INJECTION 100 ML IVPB ONE (15:37)
[2020-10-13] MEDS ORDERED: ONDANSETRON *ODT* 4 MG TABLET ONE (15:37)
[2020-10-13] MEDS ORDERED: PANTOPRAZOLE SODIUM 40 MG/100 ML BAG IVPB ONE (15:37)
[2020-10-13 15:58] LABS: BASO % 0.8 % (0-2.0); EOS % 1.3 % (0-4.5); HEMATOCRIT 35.4 % (32.4-45.2); HEMOGLOBIN 11.6 GM/dL (10.7-15.3); LYMPH % 12.8 % (8-40); MCH 27.4 pg (25.7-33.7); MCHC 32.8 g/dl (32.0-36.0); MEAN CELL VOLUME 83.4 fl (80-96); MEAN PLT VOLUME 9.5 fl (7.5-11.1); MONO % 4.5 % (3.8-10.2); NEUT % 80.6 % (42.8-82.8); PLATELET COUNT 124 10^3/uL (134-434); RBC 4.25 M/mm3 (3.60-5.2); WHITE BLOOD COUNT 6.8 K/mm3 (4.0-10.0)
[2020-10-13 16:04] LABS: INR 1.16 (0.83-1.09); PROTHROMBIN TIME (PATIENT) 14.2 SEC (9.7-13.0)
[2020-10-13 16:18] LABS: CHLORIDE 104 mmol/L (98-107); SODIUM 140 mmol/L (136-145)
[2020-10-13 16:21] LABS: ALBUMIN 3.1 g/dl (3.4-5.0); ANION GAP 6 MMOL/L (8-16); BLOOD UREA NITROGEN 8.9 mg/dL (7-18); CO2 30 mmol/L (21-32); GLUCOSE,RANDOM 87 mg/dL (74-106); LIPASE 60 U/L (73-393); MAGNESIUM 2.1 mg/dL (1.8-2.4)
[2020-10-13 16:24] LABS: CREATININE 0.6 mg/dL (0.55-1.3); SGOT/AST 16 U/L (15-37); SGPT/ALT 19 U/L (13-61)
[2020-10-13 16:26] LABS: BILIRUBIN,TOTAL 0.5 mg/dL (0.2-1)
[2020-10-13 16:27] LABS: ALK PHOS 78 U/L (45-117)
[2020-10-13 19:22] LABS: HCG,QUALITATIVE URINE Negative
[2020-10-13 19:26] LABS: EPI CELLS >36 /uL (0-25.1); HYALINE CASTS 1 /uL (0-3.1); PH,URINE 6.5 (5.0-8.0); URINE APPEARANCE CLEAR; URINE BACTERIA 572 /uL (0-1359); URINE BILIRUBIN NEGATIVE (NEGATIVE); URINE COLOR YELLOW; URINE GLUCOSE (UA) NEGATIVE (NEGATIVE); URINE KETONE NEGATIVE (NEGATIVE); URINE LEUK ESTERASE NEGATIVE (NEGATIVE); URINE NITRITE NEGATIVE (NEGATIVE); URINE PROTEIN NEGATIVE (NEGATIVE); URINE RBC 5 /uL (0-23.9); URINE UROBILINOGEN 0.2 mg/dL (0.2-1.0); URINE WBC 7 /uL (0-25.8)
== END 2020-10-13 23:03 | disposition left against medical advice (07) ==
LOC: JER 14:22
PROC: 3E033NZ Introduction of Analgesics, Hypnotics, Sedatives into Peripheral Vein, Percutaneous Approach (ICD-10-PCS; principal; 2020-10-13)
PROC: 3E033GC Introduction of Other Therapeutic Substance into Peripheral Vein, Percutaneous Approach (ICD-10-PCS; 2020-10-13)
PROC: 3E0337Z Introduction of Electrolytic and Water Balance Substance into Peripheral Vein, Percutaneous Approach (ICD-10-PCS; 2020-10-13)
DX: R07.9 Chest pain, unspecified (principal); E66.09 Other obesity due to excess calories
CPT/HCPCS: 36415; 80053; 81003; 82550; 83690; 83735; 84484; 84703; 85025; 85610; 87086; 93005; 93010; 99285-25; J0131; Q0162

== ENCOUNTER 2021-03-11 22:23 | Emergency (ER) | payer OTHER ==
[2021-03-11 22:30] VITALS: BP 104/76; TEMP 98.6; BMI 65.0
[2021-03-11] MEDS ORDERED: LACTATED RINGERS SOLUTION 1000 ML INFUS.BAG IV ONE ×2 (22:35→23:18)
[2021-03-11 22:59] LABS: VENOUS BASE EXCESS 0.7 mmol/L (-2-2); VENOUS O2 SATURATION 78.4 % (70-80); VENOUS PCO2 44.4 mmHg (38-52); VENOUS PH 7.387 (7.310-7.410)
[2021-03-11 23:00] LABS: BASO % 1.5 % (0-2.0); EOS % 1.1 % (0-4.5); HEMATOCRIT 38.9 % (32.4-45.2); MCH 28.2 pg (25.7-33.7); MCHC 33.3 g/dl (32.0-36.0); MEAN CELL VOLUME 84.6 fl (80-96); MEAN PLT VOLUME 9.6 fl (7.5-11.1); MONO % 4.8 % (3.8-10.2); NEUT % 61.6 % (42.8-82.8); PLATELET COUNT 102 10^3/uL (134-434); RDW 14.2 % (11.6-15.6); URINE APPEARANCE CLEAR; URINE BILIRUBIN NEGATIVE (NEGATIVE); URINE COLOR YELLOW; URINE GLUCOSE (UA) 3+ (NEGATIVE); URINE KETONE NEGATIVE (NEGATIVE); URINE LEUK ESTERASE NEGATIVE (NEGATIVE); URINE NITRITE NEGATIVE (NEGATIVE); URINE PROTEIN NEGATIVE (NEGATIVE); URINE UROBILINOGEN 0.2 mg/dL (0.2-1.0); WHITE BLOOD COUNT 6.4 K/mm3 (4.0-10.0)
[2021-03-11] MEDS ORDERED: INSULIN (NOVOLOG) ASPART 100 UNITS/ML 10ML VIAL SQ ONE (23:17)
[2021-03-11 23:18] LABS: CHLORIDE 94 mmol/L (98-107); SODIUM 131 mmol/L (136-145)
[2021-03-11 23:20] LABS: CALCIUM 9.1 mg/dL (8.5-10.1)
[2021-03-11 23:21] LABS: ALBUMIN 3.3 g/dl (3.4-5.0); ANION GAP 5 MMOL/L (8-16); BLOOD UREA NITROGEN 11.7 mg/dL (7-18); CO2 32 mmol/L (21-32); MAGNESIUM 2.1 mg/dL (1.8-2.4)
[2021-03-11 23:24] LABS: SGOT/AST 26 U/L (15-37); SGPT/ALT 22 U/L (13-61)
[2021-03-11 23:25] LABS: TOT PROT 7.9 g/dl (6.4-8.2)
[2021-03-11 23:26] LABS: BILIRUBIN,TOTAL 0.3 mg/dL (0.2-1)
[2021-03-11 23:27] LABS: ALK PHOS 119 U/L (45-117)
[2021-03-12 00:53] LABS: GLUCOSE,RANDOM 602 mg/dL (74-106)
[2021-03-12] MEDS ORDERED: INSULIN (NOVOLOG) ASPART 100 UNITS/ML 10ML VIAL SQ ONE (01:51)
[2021-03-12 02:00] VITALS: PULSE 82
== END 2021-03-12 02:22 | disposition home or self-care (01) ==
LOC: JER 22:23
DX: R73.9 Hyperglycemia, unspecified (principal)
CPT/HCPCS: 36415; 80053; 81003; 82010; 82803; 82962; 83735; 84702; 85025; 99283-25; C9803; U0003; U0005

== ENCOUNTER 2021-04-13 20:59 | Emergency (ER) | payer OTHER ==
[2021-04-13 21:49] VITALS: TEMP 97.2; BMI 58.0
[2021-04-13] MEDS ORDERED: KETOROLAC TROMETHAMINE 30 MG/1 ML VIAL IM ONE (23:05)
[2021-04-13] MEDS ORDERED: KETOROLAC TROMETHAMINE 30 MG/1 ML VIAL ONE (23:06)
[2021-04-13 23:17] VITALS: BP 138/88; PULSE 91
== END 2021-04-13 23:24 | disposition home or self-care (01) ==
LOC: JER 20:59
PROC: 3E023GC Introduction of Other Therapeutic Substance into Muscle, Percutaneous Approach (ICD-10-PCS; principal; 2021-04-13)
DX: S86.811A Strain of other muscle(s) and tendon(s) at lower leg level, right leg, initial encounter (principal); X50.9XXA Other and unspecified overexertion or strenuous movements or postures, initial encounter
CPT/HCPCS: 73562-TC-RT-FY; 99284-25

== ENCOUNTER 2021-05-25 06:54 | Inpatient (IN) | payer OTHER ==
[2021-05-25] MEDS ORDERED: LACTATED RINGERS SOLUTION 1000 ML INFUS.BAG IV ONE (08:07)
[2021-05-25] MEDS ORDERED: SODIUM CHLORIDE 0.9% 500 ML INFUS.BAG IV ONE ×3 (08:09→10:01)
[2021-05-25 08:38] LABS: VENOUS BASE EXCESS -23.8 mmol/L (-2-2); VENOUS O2 SATURATION 79.2 % (70-80); VENOUS PCO2 21.4 mmHg (38-52)
[2021-05-25 08:40] LABS: VENOUS PH 7.028 (7.310-7.410)
[2021-05-25 08:45] LABS: ACTIVATED PTT 53.9 SECONDS (25.2-36.5); EOS % 0.4 % (0-4.5); HEMATOCRIT 52.7 % (32.4-45.2); INR 1.25 (0.83-1.09); LYMPH % 6.5 % (8-40); MCH 27.4 pg (25.7-33.7); MCHC 30.3 g/dl (32.0-36.0); MEAN PLT VOLUME 11.1 fl (7.5-11.1); MONO % 8.4 % (3.8-10.2); NEUT % 83.7 % (42.8-82.8); PLATELET COUNT 163 10^3/uL (134-434); PROTHROMBIN TIME (PATIENT) 14.4 SEC (9.7-13.0); RBC 5.82 M/mm3 (3.60-5.2); RDW 16.7 % (11.6-15.6); WHITE BLOOD COUNT 15.7 K/mm3 (4.0-10.0)
[2021-05-25 08:46] LABS: CHLORIDE 109 mmol/L (98-107); SODIUM 140 mmol/L (136-145)
[2021-05-25 08:49] LABS: ALBUMIN 2.9 g/dl (3.4-5.0); ANION GAP 25 MMOL/L (8-16); BLOOD UREA NITROGEN 45.2 mg/dL (7-18); CALCIUM 10.9 mg/dL (8.5-10.1); CO2 6 mmol/L (21-32)
[2021-05-25 08:52] LABS: CREATININE 1.6 mg/dL (0.55-1.3); SGOT/AST 31 U/L (15-37)
[2021-05-25 08:53] LABS: BILIRUBIN,TOTAL 0.7 mg/dL (0.2-1); SGPT/ALT 39 U/L (13-61)
[2021-05-25 08:54] LABS: TOT PROT 8.7 g/dl (6.4-8.2)
[2021-05-25 08:55] LABS: ALK PHOS 199 U/L (45-117)
[2021-05-25] MEDS ORDERED: INSULIN REGULAR HUMAN 100 UNITS/ML *VIAL IVPUSH ONE (08:55)
[2021-05-25 09:02] LABS: MEAN CELL VOLUME 90.6 fl (80-96)
[2021-05-25 09:06] LABS: GLUCOSE,RANDOM 650 mg/dL (74-106)
[2021-05-25] MEDS ORDERED: VANCOMYCIN 1 GM in D5W (PRE-DOCKED) 1,000 MG/250 ML IVPB ONE (10:04)
[2021-05-25] MEDS ORDERED: PIPERACILLIN/TAZOB 4.5 GM 4.5 GM in DEXTROSE 5%-WATER 100 ML IVPB ONE (10:04)
[2021-05-25] MEDS: INSULIN REGULAR 100 UNITS in SODIUM CHLORIDE 99 ML IVPB SCH (10:14)
[2021-05-25] MEDS ORDERED: PIPERACILLIN/TAZOB 4.5 GM 4.5 GM/100 ML BAG IVPB ONE (10:16)
[2021-05-25] MEDS ORDERED: VANCOMYCIN 1 GRAM (PRE-DOCKED) 1,000 MG/250 ML BAG IVPB ONE (10:59)
[2021-05-25] MEDS ORDERED: DEXTROSE 50%-WATER - 25 GM/50 ML VIAL IVPUSH PRN (11:34)
[2021-05-25 12:05] LABS: ARTERIAL BLD GAS O2 SATURATION 93.7 % (95-98); ARTERIAL BLOOD GAS BASE EXCESS -23.5 mmol/L (-2-2); ARTERIAL BLOOD GAS PO2 93.2 mmHg (80-100)
[2021-05-25] MEDS: ENOXAPARIN NA (PORCINE) 40 MG/0.4 ML DISP.SYRIN SQ SCH ×2 (12:15→21:24)
[2021-05-25] MEDS: PANTOPRAZOLE SODIUM 40 MG VIAL IVPUSH SCH (12:15)
[2021-05-25 12:16] LABS: ARTERIAL BLOOD GAS pH 7.054 (7.350-7.450)
[2021-05-25 12:27] LABS: CHLORIDE 117 mmol/L (98-107); SODIUM 145 mmol/L (136-145)
[2021-05-25 12:29] LABS: ANION GAP 21 MMOL/L (8-16); CALCIUM 9.8 mg/dL (8.5-10.1); CO2 6 mmol/L (21-32)
[2021-05-25 12:30] LABS: BLOOD UREA NITROGEN 39.8 mg/dL (7-18)
[2021-05-25 12:33] LABS: CREATININE 1.4 mg/dL (0.55-1.3)
[2021-05-25 12:43] LABS: GLUCOSE,RANDOM 505 mg/dL (74-106)
[2021-05-25] MEDS ORDERED: SODIUM CHLORIDE 0.45% 1,000 ML IV SCH (12:45)
[2021-05-25] MEDS ORDERED: ENOXAPARIN NA (PORCINE) 40 MG/0.4 ML DISP.SYRIN SQ ONE (12:53)
[2021-05-25] MEDS ORDERED: PANTOPRAZOLE SODIUM 40 MG VIAL ONE (12:53)
[2021-05-25] MEDS ORDERED: SODIUM CHLORIDE 0.9%/KCL 20 MEQ/1,000 ML INFUS.BAG IV SCH (13:00)
[2021-05-25] MEDS ORDERED: SODIUM CHLORIDE 0.45%/POT 20 MEQ/1,000 ML INFUS.BAG IV SCH ×2 (13:15)
[2021-05-25 13:48] LABS: EPI CELLS 13 /uL (0-25.1); HYALINE CASTS 2 /uL (0-3.1); URINE APPEARANCE CLOUDY; URINE BACTERIA 225 /uL (0-1359); URINE BILIRUBIN NEGATIVE (NEGATIVE); URINE COLOR YELLOW; URINE GLUCOSE (UA) 3+ (NEGATIVE); URINE KETONE 3+ (NEGATIVE); URINE LEUK ESTERASE NEGATIVE (NEGATIVE); URINE NITRITE NEGATIVE (NEGATIVE); URINE PROTEIN 2+ (NEGATIVE); URINE RBC 81 /uL (0-23.9); URINE UROBILINOGEN 0.2 mg/dL (0.2-1.0)
[2021-05-25 13:52] LABS: URINE WBC 132.5 /uL (0-25.8); YEAST NON SEEN (NEGATIVE)
[2021-05-25] MEDS ORDERED: D5-1/2NS+20 MEQ KCL - 20 MEQ/1,000 ML INFUS.BAG IV SCH ×4 (15:45→20:48)
[2021-05-25] MEDS: MUPIROCIN 2% TOPICAL OINTMENT FOR DECOLONIZATION NS SCH ×2 (16:57→21:24)
[2021-05-25 18:23] LABS: BLOOD UREA NITROGEN 48.4 mg/dL (7-18); CALCIUM 10.7 mg/dL (8.5-10.1)
[2021-05-25 18:27] LABS: CREATININE 1.6 mg/dL (0.55-1.3)
[2021-05-25 20:03] LABS: VENOUS BASE EXCESS -14.6 mmol/L (-2-2); VENOUS O2 SATURATION 80.9 % (70-80); VENOUS PCO2 25.5 mmHg (38-52); VENOUS PH 7.242 (7.310-7.410)
[2021-05-25] MEDS ORDERED: LORazepam 2 MG/ML SDV VIAL IVPUSH ONE (21:12)
[2021-05-25 21:32] LABS: BLOOD UREA NITROGEN 48.8 mg/dL (7-18); CALCIUM 10.2 mg/dL (8.5-10.1)
[2021-05-25 21:36] LABS: CREATININE 1.6 mg/dL (0.55-1.3)
[2021-05-25] MEDS ORDERED: CHLORHEXIDINE GLUCONATE 4% CLEANSER FOR DECOLONIZATION TP SCH (22:00)
[2021-05-25 23:08] LABS: CALCIUM 9.9 mg/dL (8.5-10.1)
[2021-05-25 23:12] LABS: CREATININE 1.8 mg/dL (0.55-1.3)
[2021-05-26 00:30] LABS: BLOOD UREA NITROGEN 48.4 mg/dL (7-18)
[2021-05-26 01:55] LABS: CALCIUM 10.6 mg/dL (8.5-10.1)
[2021-05-26 01:56] LABS: BLOOD UREA NITROGEN 52.4 mg/dL (7-18)
[2021-05-26 01:59] LABS: CREATININE 1.9 mg/dL (0.55-1.3)
[2021-05-26 02:58] LABS: ARTERIAL BLD GAS O2 SATURATION 96.7 % (95-98); ARTERIAL BLOOD GAS BASE EXCESS -11.7 mmol/L (-2-2); ARTERIAL BLOOD GAS pH 7.356 (7.350-7.450)
[2021-05-26 02:59] LABS: ALLENS TEST POSITIVE
[2021-05-26 03:20] LABS: CALCIUM 10.2 mg/dL (8.5-10.1)
[2021-05-26 03:21] LABS: BLOOD UREA NITROGEN 56.6 mg/dL (7-18)
[2021-05-26 03:24] LABS: CREATININE 1.9 mg/dL (0.55-1.3)
[2021-05-26 05:08] LABS: CHLORIDE 127 mmol/L (98-107); SODIUM 153 mmol/L (136-145)
[2021-05-26 05:10] LABS: CALCIUM 10.7 mg/dL (8.5-10.1)
[2021-05-26 05:11] LABS: ALBUMIN 2.5 g/dl (3.4-5.0); ANION GAP 14 MMOL/L (8-16); BLOOD UREA NITROGEN 54.3 mg/dL (7-18); CO2 12 mmol/L (21-32); GLUCOSE,RANDOM 275 mg/dL (74-106); MAGNESIUM 2.8 mg/dL (1.8-2.4)
[2021-05-26 05:14] LABS: CREATININE 2.1 mg/dL (0.55-1.3); SGOT/AST 14 U/L (15-37); SGPT/ALT 26 U/L (13-61)
[2021-05-26 05:16] LABS: BILIRUBIN,TOTAL 0.5 mg/dL (0.2-1); TOT PROT 7.5 g/dl (6.4-8.2)
[2021-05-26 05:38] LABS: ALK PHOS 154 U/L (45-117); PHOSPHOROUS 0.2 mg/dL (2.5-4.9)
[2021-05-26] MEDS ORDERED: ACETAMINOPHEN 1000 MG/100 ML BAG IVPB ONE ×2 (05:46→14:31)
[2021-05-26] MEDS ORDERED: HEPARIN NA (PORCINE) 5,000 UNITS/ML 1ML VIAL IVPUSH SCH (06:00)
[2021-05-26] MEDS: HEPARIN NA (PORCINE) 5,000 UNITS/ML 1ML VIAL SQ SCH ×2 (06:27→14:13)
[2021-05-26] MEDS ORDERED: LACTATED RINGERS SOLUTION 1000 ML INFUS.BAG IV ONE (06:27)
[2021-05-26 07:35] LABS: CHLORIDE 129 mmol/L (98-107); SODIUM 155 mmol/L (136-145)
[2021-05-26 07:37] LABS: ANION GAP 14 MMOL/L (8-16); BLOOD UREA NITROGEN 56.1 mg/dL (7-18); CO2 12 mmol/L (21-32); GLUCOSE,RANDOM 269 mg/dL (74-106)
[2021-05-26 07:39] LABS: LACTIC ACID 3.3 mmol/L (0.4-2.0)
[2021-05-26 07:40] LABS: CREATININE 2.1 mg/dL (0.55-1.3)
[2021-05-26 07:53] LABS: HEMATOCRIT 46.2 % (32.4-45.2); HEMOGLOBIN 15.2 GM/dL (10.7-15.3); MCH 27.5 pg (25.7-33.7); MCHC 32.9 g/dl (32.0-36.0); MEAN CELL VOLUME 83.7 fl (80-96); MEAN PLT VOLUME 10.8 fl (7.5-11.1); PLATELET COUNT 161 10^3/uL (134-434); RBC 5.51 M/mm3 (3.60-5.2); RDW 15.2 % (11.6-15.6); WHITE BLOOD COUNT 9.9 K/mm3 (4.0-10.0)
[2021-05-26] MEDS ORDERED: PIPERACILLIN/TAZOBACTAM 2.25 GM VIAL IVPB ONE ×2 (07:57→14:16)
[2021-05-26] MEDS ORDERED: DEXTROSE 5%-WATER - 50 ML IVPB ONE ×2 (07:57→14:16)
[2021-05-26] MEDS ORDERED: DEXMEDETOMIDINE IN 0.9 % NACL 400 MCG/100 ML VIAL IVPB SCH (08:15)
[2021-05-26] MEDS ORDERED: SODIUM PHOSPHATE - 30 MM in SODIUM CHLORIDE 250 ML IVPB ONE (08:25)
[2021-05-26] MEDS ORDERED: VANCOMYCIN 1 GM in D5W (PRE-DOCKED) 1,000 MG/250 ML IVPB ONE ×2 (08:45→10:00)
[2021-05-26] MEDS ORDERED: POTASSIUM PHOSPHATE 30 MM in SODIUM CHLORIDE 250 ML IVPB ONE (09:00)
[2021-05-26] MEDS ORDERED: PIPERACILLIN/TAZOB 2.25 GM 2.25 GM in DEXTROSE 5%-WATER - 50 ML IVPB SCH ×2 (09:00→15:00)
[2021-05-26 09:08] LABS: ANISOCYTOSIS 0; HELMET CELLS 0; HOWELL-JOLLY BODIES 0; MACROCYTOSIS 0; OVALOCYTE 0; PLATELET ESTIMATE DECREASED; ROULEAU 0; SICKELED CELLS 0; TARGET CELLS 0; TEAR DROP CELLS 0; TOXIC GRANULATION 0
[2021-05-26] MEDS ORDERED: SODIUM CHLORIDE 0.45% 1,000 ML IV SCH ×2 (10:15→10:38)
[2021-05-26 10:23] LABS: ALLENS TEST POSITIVE; ARTERIAL BLD GAS O2 SATURATION 99.6 % (95-98); ARTERIAL BLOOD GAS BASE EXCESS -14.3 mmol/L (-2-2); ARTERIAL BLOOD GAS PO2 282.5 mmHg (80-100); ARTERIAL BLOOD GAS pH 7.254 (7.350-7.450)
[2021-05-26 10:24] LABS: VENT MODE BIPAP; VENT RATE 18
[2021-05-26] MEDS: PANTOPRAZOLE SODIUM 40 MG VIAL IVPUSH SCH (10:43)
[2021-05-26] MEDS: MUPIROCIN 2% TOPICAL OINTMENT FOR DECOLONIZATION NS SCH (11:08)
[2021-05-26 11:40] LABS: BLOOD UREA NITROGEN 58.3 mg/dL (7-18); CALCIUM 11.6 mg/dL (8.5-10.1)
[2021-05-26 11:44] LABS: CREATININE 2.6 mg/dL (0.55-1.3)
[2021-05-26] MEDS: INSULIN REGULAR 100 UNITS in SODIUM CHLORIDE 99 ML IVPB SCH (14:09)
[2021-05-26] MEDS ORDERED: DEXTROSE 5%-WATER - 1,000 ML IV SCH (14:45)
[2021-05-26 14:52] VITALS: BP 117/64; TEMP 103.5
[2021-05-26 14:53] VITALS: PULSE 141
[2021-05-26 15:34] VITALS: BMI 56.2
[2021-05-26] MEDS ORDERED: NOREPINEPHRINE BITARTRATE 4 MG/4 ML ML IV ONE (15:43)
[2021-05-27] MEDS ORDERED: VANCOMYCIN 1 GM in D5W (PRE-DOCKED) 1,000 MG/250 ML IVPB SCH (10:00)
== END 2021-05-26 19:08 | disposition expired | DRG 637 ==
LOC: JER 06:54 → JERBED 11:30 → JICU 15:22
PROVIDERS: ADMIT Internal Medicine Pulmonary Disease; ATTEND Internal Medicine Pulmonary Disease
PROC: 05HN33Z Insertion of Infusion Device into Left Internal Jugular Vein, Percutaneous Approach (ICD-10-PCS; principal; 2021-05-26)
PROC: B544ZZA Ultrasonography of Left Jugular Veins, Guidance (ICD-10-PCS; 2021-05-26)
PROC: 5A12012 Performance of Cardiac Output, Single, Manual (ICD-10-PCS; 2021-05-26)
PROC: 0BH17EZ Insertion of Endotracheal Airway into Trachea, Via Natural or Artificial Opening (ICD-10-PCS; 2021-05-26)
PROC: 5A1935Z Respiratory Ventilation, Less than 24 Consecutive Hours (ICD-10-PCS; 2021-05-26)
DX: E10.10 Type 1 diabetes mellitus with ketoacidosis without coma (principal); J96.00 Acute respiratory failure, unspecified whether with hypoxia or hypercapnia; Z68.43 Body mass index [BMI] 50.0-59.9, adult; N17.9 Acute kidney failure, unspecified; E66.01 Morbid (severe) obesity due to excess calories; G47.33 Obstructive sleep apnea (adult) (pediatric); E86.0 Dehydration; E83.52 Hypercalcemia; R50.9 Fever, unspecified; I46.9 Cardiac arrest, cause unspecified; R00.1 Bradycardia, unspecified; E10.42 Type 1 diabetes mellitus with diabetic polyneuropathy; Z86.718 Personal history of other venous thrombosis and embolism; Z86.711 Personal history of pulmonary embolism
CPT/HCPCS: 36415; 36600; 71045-TC-FY; 80048; 80053; 81003; 82010; 82550; 82553; 82570; 82803; 82962; 83036; 83605; 83735; 84100; 84300; 84484; 84703; 85025; 85610; 85730; 87040; 87086; 93005; 93010; 93306-TC; 94660; 99291; C9803; J0131; J1644; J3480; U0003; U0005